=== PATIENT | female | born 1950 | race Caucasian/White ===

== ENCOUNTER 2017-01-10 16:13 | Inpatient (IN) ==
[2017-01-10] MEDS ORDERED: METOPROLOL TARTRATE 50 MG TABLET PO STA (18:24)
--- NOTE | 2017-01-10 18:26 | Emergency Department Note ---
Arrival - Arrival Chief Complaint: Non-Specific Stated Complaint: HIGH BP AND DEHYDRATION ED Nursing Triage Note: PT WAS SEEN HERE ON TUESDAY WITH C/O CONFUSION AND DEHYDRATION. PT F/U WITH CARIDAD LOPEZ NP THIS AFTERNOON AND SENT HERE FOR FURTHER EVAL FOR NO IMPROVEMENT. PT IS AAOX3 AT TRIAGE. Mode of Arrival: Wheelchair Limitations: No Limitations Source: Patient, Family Time Seen by Provider: 01/10/17 18:20 - History of Present Illness HPI Narrative: This patient presents with several days of intermittent confusion and a spinning feeling as if she is drifting to the right. This has not been associated with nausea, vomiting, slurred speech, headache, or visual changes. The patient was seen here approximately 1 week ago for similar symptoms and returns on the recommendation of her primary care doctor on follow-up today. Family members that accompanied the patient do state that she has intermittent periods of confusion and staggering for some time. Further complicating this has been a resting tachycardia and labile blood pressure for the last 2 weeks was which her primary care physician has been trying to deal with. She denies any chest pain or shortness of breath in association with the tachycardias nor does she have a history of any thyroid disorder. Currently the patient appears in no acute distress Onset (ago): day(s) (This patient presents several days post onset of symptoms) Allergies/Adverse Reactions: Allergies Allergy/AdvReac Type Severity Reaction Status Date / Time dantrolene [From Dantrium] Allergy Flushing Verified 01/10/17 16:45 loratadine [From Claritin] Allergy Flushing Verified 01/10/17 16:45 albuterol [From Ventolin HFA] AdvReac Shakiness Verified 01/10/17 16:45 Tizanidine [From Zanaflex] AdvReac Palpitation Verified 01/10/17 16:45 s antihistamines Allergy Flushing Uncoded 01/10/17 16:45 Home Medications: Home Medications Medication Instructions Recorded Confirmed Type Amitriptyline HCl 100 mg PO BEDTIME 03/16/15 01/10/17 History Budesonide Neb [Pulmicort Respules] 0.5 mg RESP TX RT BID PRN 03/16/15 01/10/17 History Clorazepate Dipotassium 7.5 mg PO BID 03/16/15 01/10/17 History Gabapentin Cap/Tab [Neurontin 300 mg PO TID 03/16/15 01/10/17 History Cap/Tab] HYDROcodone/ACETAMIN 10-325 [[place] 1 tablet PO BID 03/16/15 01/10/17 History 10-325] HydrOXYzine PAMOATE CAP [Vistaril 25 mg PO QID PRN 03/16/15 01/10/17 History Cap] Metoprolol Tartrate 50 mg PO BID 03/16/15 01/10/17 History Morphine Sulfate [Morphine Sulfate 30 mg PO BID 03/16/15 01/10/17 History ER] Omeprazole [Prilosec] 40 mg PO DAILY 03/16/15 01/10/17 History Trazodone HCl 100 mg PO DAILY 03/16/15 01/10/17 History buPROPion HCl [Bupropion Xl] 300 mg PO DAILY 03/16/15 01/10/17 History Cyanocobalamin Inj [Vitamin B12 1,000 mcg IM FR 09/07/16 01/10/17 History Inj] Fluticasone 110 Mcg Inhaler 110 mcg INH BID 09/07/16 01/10/17 History [Flovent 110 mcg Inhaler] Lactulose 15 ml PO DAILY PRN 09/07/16 01/10/17 History Lidocaine 5% Patch [Lidoderm 5% 1 patch TRANSDERM DAILY PRN 09/07/16 01/10/17 History Patch] Naproxen [Naprosyn Tab] 500 mg PO BID 09/07/16 01/10/17 History Nitroglycerin Sl Tab [Nitrostat] 0.4 mg SL Q5M PRN 09/07/16 01/10/17 History Nystatin Liquid [Mycostatin Oral 4 ml PO QID 09/14/16 01/10/17 History Susp] Chlorzoxazone [Chlorzoxazone] 750 mg PO BID 01/07/17 01/10/17 History Ciprofloxacin Tab [Cipro Tab] 250 mg PO BID #10 tablet 01/07/17 01/10/17 Rx Citalopram Hydrobromide 20 mg PO DAILY 01/07/17 01/10/17 History [Citalopram HBr] Fluticasone 50 Mcg Nasal [place] 1 spray BOTH NARES DAILY 01/07/17 01/10/17 History [Flonase Nasal [place]] Furosemide Tab [Lasix Tab] 20 mg PO DAILY 01/07/17 01/10/17 History Lisinopril 10 mg PO DAILY 01/07/17 01/10/17 History Review of System - Review of System 12 point system: reviewed and no additional remarkable complaints except as stated - Review of System Constitutional: Present: as per HPI Respiratory: Present: as per HPI Cardiovascular: Present: as per HPI Gastrointestinal: Present: as per HPI Neurological: Present: as per HPI Medical,Surgical,& Family Hx - Medical History Cardio: History of: Cardiac Dysrhythmia (TACHYCARDIAC) Psychological: History of: Anxiety Disorders Neurology: History of: Peripheral Neuropathy Rheumatology: History of;: Fibromyalgia Respiratory: History of: Asthma, COPD Genitourinary: History of: Bladder Problem, Kidney Stones Gastrointestinal: History of: GERD Musculoskeletal: History of: Back/Neck Problems, Degenerative Disk Disease, Osteoporosis Hematology: No history of: Blood Transfusion Reaction Reproductive: No history of: Breast Cancer Other: History of: Anesthesia Reactions No history of: Cancer - Surgical History Cardiac Surgeries: Sugical HX of: Cardiac Catheterization Thoracic Surgeries: Patient denies;: Kidney (Renal Surgery), Lithotripsy HEENT Surgeries: Surgical HX of: Eye Surgery, Tonsilectomy & Adenoidectomy Abdominal Surgeries: Surgical HX of: Appendectomy, Cholecystectomy, Colonoscopy , EGD, Hernia Repair (GROIN) Reproductive Surgeries: Surgical HX of;: Breast Surgery (RIGHT TUMOR), Section (X 2), Hysterectomy Orthopedic Surgeries: Surgical HX of;: Spinal Surgery Patient denies;: Orthopedic Surgery, Total Hip Replacement, Total Knee Replacement - Social History Smoking Status: Smoker, status unknown Frequency of Alcohol Use: None Type of Drug Use: None Exam Physical Examination: GENERAL: Well developed, well nourished elderly white female in no acute distress. HEENT: Normocephalic. No trauma. Moist mucous membranes. EOMI. PERRLA. No nystagmus ENT NML NECK: Supple. No adenopathy. CARDIAC: Regular. No murmurs. Heart rate 130 CHEST: Clear to auscultation. No respiratory distress. O2 sat 96% ABDOMEN: Soft. Nontender. Active bowel sounds. EXTREMITIES: No trauma. Normal ROM. No pedal edema. SKIN: No diaphoresis. No rash. NEURO: Alert. Oriented 3. Motor, sensory, vibratory intact. No focal deficits. Vital Signs: Vital Signs Temperature 97.9 F 01/10/17 18:12 Pulse Rate 141 H 01/10/17 18:12 Respiratory Rate 18 01/10/17 18:34 Blood Pressure 153/120 01/10/17 18:12 O2 Sat by Pulse Oximetry 96 01/10/17 16:40 Course - Reevaluation(s) Reevaluation #1: Discussed with patient the need for further evaluation given her episodes of confusion and persistent tachycardia of an unexplained etiology. - Consultations Consultation #1: Discussed with the hospitalist service will admit for further evaluation treatment. Results - Labs CBC & BMP: 01/10/17 18:30 01/10/17 18:53 Labs: I reviewed the laboratory and noted the infected urine as well as the borderline glucose. - Impressions EKG: Sinus tachycardia at 100. Normal CT interval and QRS duration. Nonspecific ST changes. No evidence of acute injury pattern noted. - Diagnostic Findings Procedure: Chest x-ray: image reviewed by me, report reviewed by me (No acute disease), CT: image reviewed by me, report reviewed by me (Head: No acute disease) Disposition Clinical Impression: TIA, Vertigo, Poorly controlled blood pressure, Chronic tachycardia Case discussed with: patient, patient's family Disposition: Still a Patient Condition: Stable Time of Disposition: 20:29
[2017-01-10] MEDS ORDERED: METOPROLOL TARTRATE 50 MG TABLET ONE (18:38)
[2017-01-10 18:40] LABS: Basophils % 0.3 % (0.0-0.8); Eosinophils # 0.2 10*3/uL (0.0-0.87); Eosinophils % 2.4 % (0.00-10.9); Hematocrit 40.1 VOL% (35.7-47.0); Hemoglobin 13.3 GM/DL (12.0-16.0); Immature Granulocytes % 0.8 %; Immature Granulocytes Absolute 0.05 #; Lymphocytes # 2.4 10*3/uL (1.4-4.0); Lymphocytes % 38.7 % (21.3-54.2); Mean Corpuscular HGB Conc 33.2 GM/DL (32-36); Mean Corpuscular Hemoglobin 28 PG (27-34); Mean Corpuscular Volume 84.4 FL (87-102); Mean Platelet Volume 10.2 FL (9.6-12.0); Monocytes # 0.3 10*3/uL (0.11-0.8); Monocytes % 5.2 % (1.7-12.7); Neutrophils # 3.3 10*3/uL (1.4-7.4); Neutrophils % 52.6 % (38.7-73.9); Platelet Count 164 T/CUMM (130-400); Red Blood Count 4.75 MC/CUMM (3.8-5.5); Red Cell Distribution Width 13.6 % (9.3-17.3); White Blood Count 6.3 T/CUMM (4-12)
--- NOTE | 2017-01-10 18:44 | CT Report ---
CT head/brain wo con Indication: 66-year-old female, mental status changes. CT BRAIN WITHOUT CONTRAST DLP: 942 mGy*cm. One or more of the following dose reduction techniques was used: Automated exposure control, adjustment of the mA and/or kV according the patient size, or use of iterative reconstruction techniques. Comparison: 09/06/2012. Date of admission: 01/10/2017. Technique: Axial noncontrast CT images of the brain were obtained. Findings: No acute hemorrhage, mass or mass effect. Ventricles and sulci are appropriate for age. Patrick-white junction is maintained throughout. No focal bone lesions are shown. Visualized paranasal sinuses are clear. Impression: Negative CT brain without contrast. PROCEDURE INTERPRETED AT [facility] DEPARTMENT OF RADIOLOGY Final Report Signed by: Leoncio Wolff M.D.
--- NOTE | 2017-01-10 18:56 | XRay Report ---
XR chest 1V portable Indication: Altered mental status. Chest one view: Comparison 3 days ago shows stable ACDF, normal heart size and tortuous thoracic aorta, and chronic scarring of the right perihilar lung and both lung bases. No new infiltrates are shown. Impression: No acute cardiopulmonary disease. Chronic findings as described. PROCEDURE INTERPRETED AT [facility] DEPARTMENT OF RADIOLOGY Final Report Signed by: Leoncio Wolff M.D.
--- NOTE | 2017-01-10 19:00 | EKG Report ---
Stationary ECG Study 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
[2017-01-10 19:41] LABS: Apearance,Urine Slightly Hazy (Clear); Bilirubin,Urine Negative (Negative); Blood, Urine Negative (Negative); Glucose,Urine (UA) Negative (Negative); Hyaline Casts,Urine 4 /LPF (0-3); Ketones,Urine 20 mg/dL (Negative); Mucus,Urine Occasional /LPF (Occasional); Nitrite,Urine Positive (Negative); Protein,Urine Negative; Squamous Epithelial Cell,Urine Occasional /HPF (0-10); Urine Color Yellow (Yellow); Urine Specific Gravity 1.009 (1.001-1.035); Urine Urobilinogen < 2.0 EU/DL (0.2-1.0); WBC,Urine 30 /HPF (0-6)
[2017-01-10 19:57] LABS: Albumin 2.9 G/DL (3.4-5.0); Bilirubin,Total 0.4 MG/DL (0.2-1.0); CKMB % 3.5 %; Calcium 7.8 MG/DL (8.5-10.1); Free T4 (Free Thyroxine) 1.42 NG/DL (0.76-1.46); Osmolality,Calculated 270.7 MOS/KG (273-304); Potassium 3.8 MMOL/L (3.5-5.1); Thyroid Stimulating Hormone 2.42 uIU/ml (0.358-3.74); Total Protein 6.1 G/DL (6.4-8.3); Troponin I Only 0.015 NG/ML (0.00-0.045)
[2017-01-10] MEDS ORDERED: LEVOFLOXACIN INJ 750 MG in PREMIX 1 EACH IV STA (20:19)
[2017-01-10] MEDS ORDERED: LEVOFLOXACIN INJ 150 ML IV ONE (21:26)
[2017-01-10] MEDS ORDERED: LABETALOL 20 MG/4 ML SYRINGE IV PRN (21:36)
[2017-01-10] MEDS ORDERED: ACETAMINOPHEN 325 MG TABLET PO PRN (21:36)
[2017-01-10] MEDS ORDERED: HydrOXYzine PAMOATE 25 MG CAPSULE PO PRN (21:41)
[2017-01-10] MEDS ORDERED: LACTULOSE 20 GM/30 ML UDCUP PO PRN (21:41)
[2017-01-10] MEDS ORDERED: BUDESONIDE 0.5 MG/2 ML NEB RESP TX PRN (21:41)
[2017-01-10] MEDS ORDERED: CHLORZOXAZONE 500 MG PO SCH (21:45)
--- NOTE | 2017-01-10 21:49 | Hospitalist History & Physical ---
Assessment and Plan (1) Urinary tract infection Status: Acute Current Visit: Yes (2) Dizziness Status: Acute Current Visit: Yes (3) Tachycardia Status: Acute Current Visit: Yes (4) Orthostatic hypotension Status: Acute Current Visit: Yes (5) Forgetfulness Status: Acute Current Visit: Yes (6) Confusion Status: Acute Assessment and plan: We will admit this patient to our service. She will be placed on a monitored bed. Check orthostatic vital signs. Continue home meds as appropriate. Get MRI of her brain and vascular studies. Get a PT evaluation. IV antibiotics for her urinary tract infection follow-up on culture results. Consult Dr. Sandoval for this confusion. Patient relates a history of losing 5 days and cannot remember what happened. This could be associated with a polypharmacy she is on a lot of medications. Reevaluate patient in the morning just plans appropriate Current Visit: Yes History of Present Illness Chief complaint: Dizziness orthostatic hypotension forgetfulness confusion History of present illness: Ms. Ybarra is a 66 year old female with medical problems including hypertension, fibromyalgia, asthma, COPD, osteoporosis, and tachycardia who comes to our ER today. Patient gives a long history about what is going on with her in the past. She said probably about 6 months ago it was noted that her heart rate was really accelerated. She was started on metoprolol at that time. Her blood pressure continued to climb and she was started on another blood pressure medicine. She started having memory problems soon thereafter. It was more about where she places things. She is noticed that she has had some lower extremity weakness. And she has been having frequent falls were her right side seems weaker than her left. Patient was in the ER 2 days ago for dizziness and falling. She had a follow-up appointment with her primary care doctor Dr. Gonzales. The MDs office was concerned about her forgetfulness and her variation in her heart rate in her confusion and recommended that she be sent up to our hospital for further evaluation I was consulted to admit her to the emergency room Home Medications Medication Instructions Recorded Confirmed Type Amitriptyline HCl 100 mg PO BEDTIME 03/16/15 01/10/17 History Budesonide Neb [Pulmicort Respules] 0.5 mg RESP TX RT BID PRN 03/16/15 01/10/17 History Clorazepate Dipotassium 7.5 mg PO BID 03/16/15 01/10/17 History Gabapentin Cap/Tab [Neurontin 300 mg PO TID 03/16/15 01/10/17 History Cap/Tab] HYDROcodone/ACETAMIN 10-325 [[place] 1 tablet PO BID 03/16/15 01/10/17 History 10-325] HydrOXYzine PAMOATE CAP [Vistaril 25 mg PO QID PRN 03/16/15 01/10/17 History Cap] Metoprolol Tartrate 50 mg PO BID 03/16/15 01/10/17 History Morphine Sulfate [Morphine Sulfate 30 mg PO BID 03/16/15 01/10/17 History ER] Omeprazole [Prilosec] 40 mg PO DAILY 03/16/15 01/10/17 History Trazodone HCl 100 mg PO DAILY 03/16/15 01/10/17 History buPROPion HCl [Bupropion Xl] 300 mg PO DAILY 03/16/15 01/10/17 History Cyanocobalamin Inj [Vitamin B12 1,000 mcg IM FR 09/07/16 01/10/17 History Inj] Fluticasone 110 Mcg Inhaler 110 mcg INH BID 09/07/16 01/10/17 History [Flovent 110 mcg Inhaler] Lactulose 15 ml PO DAILY PRN 09/07/16 01/10/17 History Lidocaine 5% Patch [Lidoderm 5% 1 patch TRANSDERM DAILY PRN 09/07/16 01/10/17 History Patch] Naproxen [Naprosyn Tab] 500 mg PO BID 09/07/16 01/10/17 History Nitroglycerin Sl Tab [Nitrostat] 0.4 mg SL Q5M PRN 09/07/16 01/10/17 History Nystatin Liquid [Mycostatin Oral 4 ml PO QID 09/14/16 01/10/17 History Susp] Chlorzoxazone [Chlorzoxazone] 750 mg PO BID 01/07/17 01/10/17 History Ciprofloxacin Tab [Cipro Tab] 250 mg PO BID #10 tablet 01/07/17 01/10/17 Rx Citalopram Hydrobromide 20 mg PO DAILY 01/07/17 01/10/17 History [Citalopram HBr] Fluticasone 50 Mcg Nasal [place] 1 spray BOTH NARES DAILY 01/07/17 01/10/17 History [Flonase Nasal [place]] Furosemide Tab [Lasix Tab] 20 mg PO DAILY 01/07/17 01/10/17 History Lisinopril 10 mg PO DAILY 01/07/17 01/10/17 History Allergies Allergy/AdvReac Type Severity Reaction Status Date / Time dantrolene [From Dantrium] Allergy Flushing Verified 01/10/17 16:45 loratadine [From Claritin] Allergy Flushing Verified 01/10/17 16:45 albuterol [From Ventolin HFA] AdvReac Shakiness Verified 01/10/17 16:45 Tizanidine [From Zanaflex] AdvReac Palpitation Verified 01/10/17 16:45 s antihistamines Allergy Flushing Uncoded 01/10/17 16:45 Medical,Surgical,& Family Hx - Medical History Cardio: History of: Cardiac Dysrhythmia (TACHYCARDIAC) Psychological: History of: Anxiety Disorders Neurology: History of: Peripheral Neuropathy Rheumatology: History of;: Fibromyalgia Respiratory: History of: Asthma, COPD Genitourinary: History of: Bladder Problem, Kidney Stones Gastrointestinal: History of: GERD Musculoskeletal: History of: Back/Neck Problems, Degenerative Disk Disease, Osteoporosis Hematology: No history of: Blood Transfusion Reaction Reproductive: No history of: Breast Cancer Other: History of: Anesthesia Reactions No history of: Cancer - Surgical History Cardiac Surgeries: Sugical HX of: Cardiac Catheterization Thoracic Surgeries: Patient denies;: Kidney (Renal Surgery), Lithotripsy HEENT Surgeries: Surgical HX of: Eye Surgery, Tonsilectomy & Adenoidectomy Abdominal Surgeries: Surgical HX of: Appendectomy, Cholecystectomy, Colonoscopy , EGD, Hernia Repair (GROIN) Reproductive Surgeries: Surgical HX of;: Breast Surgery (RIGHT TUMOR), Section (X 2), Hysterectomy Orthopedic Surgeries: Surgical HX of;: Spinal Surgery Patient denies;: Orthopedic Surgery, Total Hip Replacement, Total Knee Replacement - Social History Smoking Status: Smoker, status unknown Frequency of Alcohol Use: None Type of Drug Use: None 12 point system: reviewed and no additional remarkable complaints except as stated Exam - Constitutional General appearance: normal weight - Head Head exam: Present: normal inspection - Eye Eye exam: Present: EOMI Pupils: Present: BASSAM - ENT ENT exam: Present: normal exam - Neck Neck exam: Present: normal inspection - Respiratory Respiratory exam: Present: clear to auscultation bilaterally - Cardiovascular Cardiovascular exam: Present: regular rate and rhythm - GI/Abdominal GI/Abdominal exam: Present: normal bowel sounds - Extremities Exam Extremities exam: Present: normal inspection - Back Exam Back exam: Present: normal inspection - Neurological Exam Neurological exam: Present: alert - Psychiatric Psychiatric exam: Present: normal affect - Skin Skin exam: Present: normal color Results - Labs CBC & BMP: 01/10/17 18:30 01/10/17 18:53
[2017-01-10 23:46] LABS: Barbiturates Screen,Urine Negative (Negative); Benzodiazepines Screen,Urine Positive (Negative); Cannabinoid Screen,Urine Negative (Negative); Opiate Screen,Urine Positive (Negative); Phencyclidine Screen,Urine Negative (Negative)
[2017-01-10] MEDS: MORPHINE ER 30 MG TABLET PO SCH (23:47)
[2017-01-10] MEDS: traZODone 50 MG TABLET PO SCH (23:47)
[2017-01-10] MEDS: CLORAZEPATE 7.5 MG TABLET PO SCH (23:47)
[2017-01-10] MEDS: AMITRIPTYLINE 50 MG TABLET PO SCH (23:48)
[2017-01-10] MEDS: PANTOPRAZOLE 40 MG TABLET PO SCH (23:48)
[2017-01-10] MEDS: ENOXAPARIN 40 MG/0.4 ML SYRINGE SUBCUT SCH (23:50)
[2017-01-11] MEDS: FLUTICASONE 110 MCG/PUFF INHALER 12 GM INH SCH ×3 (00:01→21:48)
[2017-01-11 06:30] LABS: Basophils % 0.6 % (0.0-0.8); Eosinophils # 0.3 10*3/uL (0.0-0.87); Eosinophils % 5.7 % (0.00-10.9); Hematocrit 33.7 VOL% (35.7-47.0); Hemoglobin 11.4 GM/DL (12.0-16.0); Immature Granulocytes Absolute 0.05 #; Lymphocytes % 39.3 % (21.3-54.2); Mean Corpuscular HGB Conc 33.8 GM/DL (32-36); Mean Corpuscular Hemoglobin 28 PG (27-34); Mean Platelet Volume 10.6 FL (9.6-12.0); Monocytes # 0.4 10*3/uL (0.11-0.8); Neutrophils # 2.4 10*3/uL (1.4-7.4); Neutrophils % 46.4 % (38.7-73.9); Platelet Count 168 T/CUMM (130-400); Red Blood Count 4.06 MC/CUMM (3.8-5.5); Red Cell Distribution Width 13.4 % (9.3-17.3); White Blood Count 5.1 T/CUMM (4-12)
[2017-01-11 06:58] LABS: Calcium 8.2 MG/DL (8.5-10.1); Potassium 3.9 MMOL/L (3.5-5.1); Risk Ratio 3.06
--- NOTE | 2017-01-11 07:38 | Ultrasound Report ---
Referring physician: Kaylah Felipe Exam: Carotid ultrasound Date: January 11, 2017 Comparison: None Reason: Weakness, dizziness, confusion Technique: Duplex scan of the carotid arteries was performed using B-Mode/grayscale imaging and Doppler spectral analysis and color flow. Ultrasound images were captured and stored. Findings: There is minimal plaque at the carotid bifurcations. The right ICA measures 0.56 cm in diameter, and the left ICA measures 0.56 cm in diameter. The peak systolic velocities are as follows: Right CCA: 62 cm/s Right proximal ICA: 70 cm/s Right distal ICA: 87 cm/s Right ECA: 85 cm/s Left CCA: 58 cm/s Left proximal ICA: 48 cm/s Left distal ICA: 53 cm/s Left ECA: 37 cm/s The peak systolic ICA/CCA velocity ratios are as follows: 1.4 on the right and 0.9 on the left. Antegrade flow is present within both vertebral arteries. Impression: 1. Less than 50% stenosis of both cervical internal carotid arteries. 2. The Society of Radiologists in Ultrasound consensus conference criteria was used. PROCEDURE INTERPRETED AT [facility] DEPARTMENT OF RADIOLOGY Final Report Signed by: Dr. John Coe
[2017-01-11] MEDS ORDERED: FUROSEMIDE 20 MG TABLET PO SCH (09:00)
[2017-01-11] MEDS ORDERED: METOPROLOL TARTRATE 50 MG TABLET PO SCH (09:00)
[2017-01-11] MEDS ORDERED: PANTOPRAZOLE 40 MG TABLET PO SCH (09:00)
[2017-01-11] MEDS: NYSTATIN 500,000 UNIT/5 ML UDCUP PO SCH ×4 (10:13→21:48)
[2017-01-11] MEDS: CITALOPRAM 20 MG TABLET PO SCH (10:13)
[2017-01-11] MEDS: buPROPion XL 150 MG TABLET PO SCH (10:15)
[2017-01-11] MEDS: ASPIRIN 325 MG TABLET PO SCH (10:16)
[2017-01-11] MEDS: NAPROXEN 500 MG TABLET PO SCH ×2 (10:16→21:48)
[2017-01-11] MEDS: MORPHINE ER 30 MG TABLET PO SCH ×2 (10:17→21:47)
[2017-01-11] MEDS: LISINOPRIL 10 MG TABLET PO SCH (10:17)
[2017-01-11] MEDS: GABAPENTIN 300 MG CAPSULE PO SCH ×3 (10:18→21:47)
[2017-01-11] MEDS: PANTOPRAZOLE 40 MG TABLET PO SCH (10:18)
[2017-01-11] MEDS: FLUTICASONE 50 MCG NASAL SPRAY 16 GM BOTTLE BOTH NARES SCH (10:18)
[2017-01-11] MEDS: CLORAZEPATE 7.5 MG TABLET PO SCH ×2 (10:25→21:47)
--- NOTE | 2017-01-11 10:32 | Hospitalist Progress Note ---
Assessment and Plan (1) Confusion Status: Chronic Assessment and plan: The patient has high risk for adverse medication interactions on current regimen , many of which would overlap with her base complaints. Current Visit: Yes Hospitalist: Subjective Interval history: 66 yo female who was referred from her physicians office to ER. She has had three trips to the ER over the last year for subjective fever without positive findings. Her most recent visit on the showed no fever, normal WBC, and current culture results are all negative. She has chronic pain disorder with use of opiates. angiolytics, and multiple antidepressants. She is concerned about widely fluctuating blood pressures and persistent tachycardia (sinus on checks here since February of 2016). She is chronically on metoprolol, lisinopril, and lasix. Her admitting laboratory evaluation was unremarkable. On previous ER visit she demonstrated elevated creatinine kinase levels with stable cTnI levels suggesting metabolic muscle disorder. Exam - Constitutional Vitals: Period Temp Pulse Resp BP Sys/Mike Pulse Ox Last 24 Hr 97.6 F-98.2 F 82-86 18-20 98-148/62-98 93-96 General appearance: normal weight, no acute distress - Respiratory Respiratory exam: Present: clear to auscultation bilaterally. Absent: rales, rhonchi, wheezes - Cardiovascular Cardiovascular exam: Present: regular rate and rhythm. Absent: systolic murmur - GI/Abdominal GI/Abdominal exam: Present: normal bowel sounds. Absent: distended, tenderness , rebound - Extremities Exam Extremities exam: Absent: edema - Neurological Exam Neurological exam: Present: alert, oriented X3, other (proximal muscle weakness) Results - Labs CBC & BMP: 01/11/17 05:34 01/11/17 05:34 Labs: cTnI not evolving - Diagnostic Findings Procedure: Chest x-ray: report reviewed by me (negative), CT: report reviewed by me (head negative), Ultrasound: report reviewed by me (unremarkable carotid ultrasound)
[2017-01-11 12:25] LABS: CKMB % 3.3 %
--- NOTE | 2017-01-11 14:57 | Event Note ---
Patient gone for MRI
--- NOTE | 2017-01-11 15:35 | Magnetic Resonance Report ---
MRI brain without contrast Indication: Vertigo, confusion Comparison: None available Technique: Axial sagittal and coronal imaging of the brain is performed without contrast. T1, T2, FLAIR and diffusion weighted sequences are performed. Findings: No evidence of restricted diffusion seen. No evidence of intracranial hemorrhage, mass, mass effect or midline shift is seen. Few small foci are faintly seen in the white matter of the cerebral hemispheres. Remaining brain parenchyma has normal signal and differentiation. The ventricles and cisterns are appropriate in caliber. Posterior fossa, mid brain and pituitary gland appear within normal limits. No evidence of cranial or skull base abnormality seen. Impression: Few small foci of white matter T2 signal hyperintensity, likely related to chronic microvascular changes. PROCEDURE INTERPRETED AT [facility] DEPARTMENT OF RADIOLOGY Final Report Signed by: Dr. Prabhjot Bruno
--- NOTE | 2017-01-11 16:17 | ECHO Report ---
Vivien Ybarra Exam Date: 01/11/2017 09:24 Referring Physician: Technologist: Bridgett Thomas Age: 66 Ht (in): 60 Wt (lb): 176 Gender: F Exam Location: [facility] Echo Indications: Hypotension, weakness, UTI, Dizziness, tachycardia BP: 98 / 62 HR: 83 Rhythm: Sinus Technical Quality: Technically difficult study IMPRESSIONS Technically difficult study. EF 55 %. Grade I/IV diastolic dysfunction (abnormal relaxation filling pattern), normal to mildly elevated filling pressures. Normal right ventricular size. The right atrium is mildly enlarged. The left atrium is mildly enlarged. Mildly thickened mitral valve. Trace mitral valve regurgitation. Aortic valve sclerosis. No aortic valve regurgitation. Mild tricuspid valve regurgitation. PAP 40 mmHG. Pulmonic valve not well visualized. No pericardial effusion. Normal size aortic root and proximal ascending aorta. MEASUREMENTS (Male / Female) Normal Values 2D ECHO LV Diastolic Diameter PLAX 4.3 cm 4.2 - 5.9 / 3.9 - 5.3 cm LV Systolic Diameter PLAX 2.9 cm LV Fractional Shortening PLAX 32.4 % IVS Diastolic Thickness 1.6 cm 0.6 - 1.0 / 0.6 - 0.9 cm LVPW Diastolic Thickness 1.4 cm 0.6 - 1.0 / 0.6 - 0.9 cm RV Internal Dim ED PLAX 2.4 cm Aortic Root Diameter 1.8 cm LA Systolic Diameter LX 2.3 cm 3.0 - 4.0 / 2.7 - 3.8 cm DOPPLER TR Peak Velocity 201.0 cm/s TR Peak Gradient 16.2 mmHg FINDINGS Left Ventricle EF 55 %. Grade I/IV diastolic dysfunction (abnormal relaxation filling pattern), normal to mildly elevated filling pressures. Right Ventricle Normal right ventricular size. Right Atrium The right atrium is mildly enlarged. Left Atrium The left atrium is mildly enlarged. Mitral Valve Mildly thickened mitral valve. Trace mitral valve regurgitation. Aortic Valve Aortic valve sclerosis. No aortic valve regurgitation. Tricuspid Valve Morphologically normal tricuspid valve. Mild tricuspid valve regurgitation. PAP 40 mmHG. Pulmonic Valve Pulmonic valve not well visualized. Pericardium No pericardial effusion. Aorta Normal size aortic root and proximal ascending aorta. Anthony Marcano (Electronically Signed) Final Date: 11 January 2017 16:17
[2017-01-11] MEDS ORDERED: LEVOFLOXACIN INJ 500 MG in PREMIX 1 EACH IV SCH (21:00)
[2017-01-11] MEDS: traZODone 50 MG TABLET PO SCH (21:47)
[2017-01-11] MEDS: AMITRIPTYLINE 50 MG TABLET PO SCH (21:48)
[2017-01-11] MEDS: ENOXAPARIN 40 MG/0.4 ML SYRINGE SUBCUT SCH (21:49)
--- NOTE | 2017-01-12 06:51 | Hospitalist Progress Note ---
Assessment and Plan (1) Confusion Status: Chronic Assessment and plan: The patient has high risk for adverse medication interactions on current regimen , many of which would overlap with her base complaints. Current Visit: Yes (2) Muscle disease or syndrome Status: Chronic Assessment and plan: Prolonged elevation of total CK and MB fractions. Current Visit: Yes Hospitalist: Subjective Interval history: 66 yo female admitted from physician's office after ER visit. Several evaluations for subjective fevers without positive findings. Incidental note of elevated total CK and substantial MB contribution. She demonstrated stable findings on yesterday's check suggesting underlying muscle disorder (? polymyalgia, inflammatory myositis, toxic effects of one of her many psychiatric agents). Her MRI has returned without positive findings and her system blood pressure is adequate off of antihypertensives. Neurology consult is pending. Exam - Constitutional Vitals: Period Temp Pulse Resp BP Sys/Mike Pulse Ox Last 24 Hr 96.1 F-97.8 F 85-117 18-20 81-119/52-78 92-96 General appearance: normal weight, no acute distress - Respiratory Respiratory exam: Present: clear to auscultation bilaterally - Cardiovascular Cardiovascular exam: Present: regular rate and rhythm - GI/Abdominal GI/Abdominal exam: Present: normal bowel sounds. Absent: tenderness - Extremities Exam Extremities exam: Absent: edema - Neurological Exam Neurological exam: Present: alert, oriented X3 Results - Labs CBC & BMP: 01/11/17 05:34 01/11/17 05:34 Labs: CK 466/16 and 402/13 - Diagnostic Findings Procedure: MRI: report reviewed by me (small vessel changes)
[2017-01-12] MEDS: LISINOPRIL 10 MG TABLET PO SCH (09:00)
[2017-01-12] MEDS: PANTOPRAZOLE 40 MG TABLET PO SCH (09:00)
[2017-01-12] MEDS: FLUTICASONE 110 MCG/PUFF INHALER 12 GM INH SCH ×2 (10:45→22:29)
[2017-01-12] MEDS: buPROPion XL 150 MG TABLET PO SCH (10:45)
[2017-01-12] MEDS: NAPROXEN 500 MG TABLET PO SCH ×2 (10:45→22:28)
[2017-01-12] MEDS: CLORAZEPATE 7.5 MG TABLET PO SCH ×2 (10:45→22:31)
[2017-01-12] MEDS: CITALOPRAM 20 MG TABLET PO SCH (10:46)
[2017-01-12] MEDS: FLUTICASONE 50 MCG NASAL SPRAY 16 GM BOTTLE BOTH NARES SCH (10:46)
[2017-01-12] MEDS: ASPIRIN 325 MG TABLET PO SCH (10:46)
[2017-01-12] MEDS: MORPHINE ER 30 MG TABLET PO SCH ×2 (10:46→22:28)
[2017-01-12] MEDS: GABAPENTIN 300 MG CAPSULE PO SCH ×3 (10:46→22:30)
[2017-01-12] MEDS: NYSTATIN 500,000 UNIT/5 ML UDCUP PO SCH ×4 (10:47→22:30)
--- NOTE | 2017-01-12 16:17 | Neurology Consult Note ---
History of Present Illness History of present illness: Ms. Ybarra is a 66 year old female with medical problems including hypertension, fibromyalgia, asthma, COPD, osteoporosis, and tachycardia who is admitted to the hospital with generalized weakness. Patient reported some memory difficulties as well. She reported that last week for 3 days she has some high-grade fever and has no recollection of those 3 or 4 days. Patient gives a long history about what is going on with her in the past. She said probably about 6 months ago it was noted that her heart rate was really accelerated. She was started on metoprolol at that time. Her blood pressure continued to climb and she was started on another blood pressure medicine. She started having memory problems soon thereafter. It was more about where she places things. She is noticed that she has had some lower extremity weakness. And she has been having frequent falls were her right side seems weaker than her left. Patient was in the ER 2 days ago for dizziness and falling. MRI of the brain reveals no acute abnormalities Home Medications Medication Instructions Recorded Confirmed Type Amitriptyline HCl 100 mg PO BEDTIME 03/16/15 01/10/17 History Budesonide Neb [Pulmicort Respules] 0.5 mg RESP TX RT BID PRN 03/16/15 01/10/17 History Clorazepate Dipotassium 7.5 mg PO BID 03/16/15 01/10/17 History Gabapentin Cap/Tab [Neurontin 300 mg PO TID 03/16/15 01/10/17 History Cap/Tab] HYDROcodone/ACETAMIN 10-325 [[place] 1 tablet PO BID PRN 03/16/15 01/10/17 History 10-325] HydrOXYzine PAMOATE CAP [Vistaril 25 mg PO QID PRN 03/16/15 01/10/17 History Cap] Metoprolol Tartrate 50 mg PO BID 03/16/15 01/10/17 History Morphine Sulfate [Morphine Sulfate 30 mg PO BID 03/16/15 01/10/17 History ER] Omeprazole [Prilosec] 40 mg PO DAILY 03/16/15 01/10/17 History Trazodone HCl 100 mg PO DAILY 03/16/15 01/10/17 History buPROPion HCl [Bupropion Xl] 300 mg PO DAILY 03/16/15 01/10/17 History Cyanocobalamin Inj [Vitamin B12 1,000 mcg IM FR 09/07/16 01/10/17 History Inj] Fluticasone 110 Mcg Inhaler 110 mcg INH BID 09/07/16 01/10/17 History [Flovent 110 mcg Inhaler] Lactulose 15 ml PO DAILY PRN 09/07/16 01/10/17 History Lidocaine 5% Patch [Lidoderm 5% 1 patch TRANSDERM DAILY PRN 09/07/16 01/10/17 History Patch] Naproxen [Naprosyn Tab] 500 mg PO BID 09/07/16 01/10/17 History Nitroglycerin Sl Tab [Nitrostat] 0.4 mg SL Q5M PRN 09/07/16 01/10/17 History Nystatin Liquid [Mycostatin Oral 4 ml PO QID 09/14/16 01/10/17 History Susp] Chlorzoxazone [Chlorzoxazone] 500 mg PO BID 01/07/17 01/11/17 History Ciprofloxacin Tab [Cipro Tab] 250 mg PO BID #10 tablet 01/07/17 01/10/17 Rx Citalopram Hydrobromide 20 mg PO DAILY 01/07/17 01/10/17 History [Citalopram HBr] Fluticasone 50 Mcg Nasal [place] 1 spray BOTH NARES DAILY 01/07/17 01/10/17 History [Flonase Nasal [place]] Furosemide Tab [Lasix Tab] 20 mg PO DAILY 01/07/17 01/10/17 History Lisinopril 10 mg PO DAILY 01/07/17 01/10/17 History Promethazine Inj [Phenergan Inj] 25 mg IM Q4H 01/11/17 01/11/17 History Allergies Allergy/AdvReac Type Severity Reaction Status Date / Time albuterol [From Ventolin HFA] AdvReac Shakiness Verified 01/10/17 16:45 dantrolene [From Dantrium] AdvReac Flushing Verified 01/11/17 07:32 loratadine [From Claritin] AdvReac Flushing Verified 01/11/17 07:32 Tizanidine [From Zanaflex] AdvReac Palpitation Verified 01/10/17 16:45 s antihistamines AdvReac Flushing Uncoded 01/11/17 07:32 12 point system: reviewed and no additional remarkable complaints except as stated Medical,Surgical,& Family Hx - Medical History Cardio: History of: Cardiac Dysrhythmia (TACHYCARDIAC) Psychological: History of: Anxiety Disorders Neurology: History of: Peripheral Neuropathy Rheumatology: History of;: Fibromyalgia Respiratory: History of: Asthma, COPD Genitourinary: History of: Bladder Problem, Kidney Stones Gastrointestinal: History of: GERD Musculoskeletal: History of: Back/Neck Problems, Degenerative Disk Disease, Osteoporosis Hematology: No history of: Blood Transfusion Reaction Reproductive: No history of: Breast Cancer Other: History of: Anesthesia Reactions No history of: Cancer - Surgical History Cardiac Surgeries: Sugical HX of: Cardiac Catheterization Thoracic Surgeries: Patient denies;: Kidney (Renal Surgery), Lithotripsy HEENT Surgeries: Surgical HX of: Eye Surgery, Tonsilectomy & Adenoidectomy Abdominal Surgeries: Surgical HX of: Appendectomy, Cholecystectomy, Colonoscopy , EGD, Hernia Repair (GROIN) Reproductive Surgeries: Surgical HX of;: Breast Surgery (RIGHT TUMOR), Section (X 2), Hysterectomy Orthopedic Surgeries: Surgical HX of;: Spinal Surgery Patient denies;: Orthopedic Surgery, Total Hip Replacement, Total Knee Replacement - Social History Smoking Status: Smoker, status unknown Frequency of Alcohol Use: None Type of Drug Use: None Exam - Constitutional Vitals: Period Temp Pulse Resp BP Sys/Mike Pulse Ox Last 24 Hr 97.2 F-97.8 F 91-99 18-20 64-145/40-89 93-96 Exam: GENERAL: Patient is in no acute distress. NECK: Neck is supple. There is no JVD. No carotid bruits present. No thyroid masses. CVS: First and second heart sounds are normal. There is no S3 present. Regular rate and rhythm. RESPIRATORY: Lungs are clear to auscultation without any rales or rhonchi. ABDOMEN: Soft and non-tender. Bowel sounds are present. There is no hepatosplenomegaly. EXT: There is no palpable edema. Peripheral pulses are present. Skin: No rashes Central Nervous system: General: Alert, awake and Oriented x 3 Speech: Fluent Comprehension: Intact and normal Facial expressions: Normal Cranial Nerves: CN1/Olfactory: Normal CN II/ Optic: Normal, Visual Schulz unreliable CN III, and : BASSAM & EOMI CN V: Normal & intact CN VII: face is symmetric CNVIII: Normal CN XI/X/XI/XII: Intact and Normal Motor: Bulk and Tone is normal. Strength in the right 4/5 Strength in the left 4/5 Sensory: Grossly intact for all the modalities of PP, LT and temp sense Reflexes: 1+ and symmetrical Cerebellar function: Normal finger to nose and heel to francisco testing. Toes: Equivocal Gait: Not tested Results - Labs CBC & BMP: 01/11/17 05:34 01/11/17 05:34 Assessment and Plan (1) Debility Status: Acute Assessment and plan: This is likely due to febrile illness which in turned could be due to UTI No evidence of acute [employer] pathology Current Visit: Yes (2) Forgetfulness Status: Acute Assessment and plan: No intervention needed at this time. I will be more than happy to follow-up as an out patient sign off. Call PRN Current Visit: Yes
[2017-01-12] MEDS: ONDANSETRON 4 MG/2 ML VIAL IV PRN (19:15)
[2017-01-12] MEDS: traZODone 50 MG TABLET PO SCH (22:28)
[2017-01-12] MEDS: AMITRIPTYLINE 50 MG TABLET PO SCH (22:29)
[2017-01-12] MEDS: ENOXAPARIN 40 MG/0.4 ML SYRINGE SUBCUT SCH (22:30)
--- NOTE | 2017-01-13 06:58 | Discharge Summary ---
Hospital Course - Hospital Course Hospital Course: Ms. Ybarra is a 66-year-old female who was admitted from her physician's office following an emergency room visit on 07 January. She has had several emergency room visits for subjective fever with no positive findings. She has been treated several times for urinary tract infections of unknown with of unknown organisms through her physician's office. She had complained on this occasion of confusion and again fever. On reviewing previous records it was noted she had a consistent elevation of her CPK and her MB fraction. She did demonstrate mild proximal muscle weakness diffusely. And on repeat the CPK and CK-MB were still elevated. Sedimentation rate was mildly elevated and C- reactive protein was 1.35. A review of her medicine list indicated numerous psychiatric medications potentially contributing to an underlying muscle disorder. She had complained of a increased heart rate again likely secondary to medication effect. For this she has been placed on beta blockers with widely fluctuating blood pressures subsequent to that time. During the hospital stay the patient was afebrile white count was normal. She was seen in consultation by neurology who recommended treatment of the positive urine culture for staph lugendious with outpatient office follow-up with neurology in 1 month. The patient has been advised to discontinue her antihypertensive medications as blood pressure in the hospital stay had been normal. In addition we have asked her to follow-up with her primary provider with consideration of gradual reduction in her psychiatric medications. Diagnosis - Discharge Diagnosis (1) Confusion Status: Chronic (2) Muscle disease or syndrome Status: Chronic Discharge Plan - Discharge Data Disposition: Disch To Home/Self Care Condition at Discharge: Stable Discharge Diet: advance to your usual diet Activity: resume usual activities as tolerated - Discharge Medications Continue Budesonide Neb [Pulmicort Respules] 0.5 mg RESP TX RT BID PRN PRN Reason: Shortness Of Breath/Wheezing HydrOXYzine PAMOATE CAP [Vistaril Cap] 25 mg PO QID PRN PRN Reason: Anxiety buPROPion HCl [Bupropion Xl] 300 mg PO DAILY HYDROcodone/ACETAMIN 10-325 [[place] 10-325] 1 tablet PO BID PRN PRN Reason: Pain Clorazepate Dipotassium 7.5 mg PO BID Trazodone HCl 100 mg PO DAILY Amitriptyline HCl 100 mg PO BEDTIME Morphine Sulfate [Morphine ER Cap] 30 mg PO BID Omeprazole [Prilosec] 40 mg PO DAILY Gabapentin Cap/Tab [Neurontin Cap/Tab] 300 mg PO TID Cyanocobalamin Inj [Vitamin B12 Inj] 1,000 mcg IM FR Nitroglycerin Sl Tab [Nitrostat] 0.4 mg SL Q5M PRN PRN Reason: Chest Pain Naproxen [Naprosyn Tab] 500 mg PO BID Lidocaine 5% Patch [Lidoderm 5% Patch] 1 patch TRANSDERM DAILY PRN PRN Reason: Pain Lactulose 15 ml PO DAILY PRN PRN Reason: Constipation Fluticasone 110 Mcg Inhaler [Flovent 110 mcg Inhaler] 110 mcg INH BID Citalopram Hydrobromide [Citalopram HBr] 20 mg PO DAILY Chlorzoxazone 500 mg PO BID Fluticasone 50 Mcg Nasal [place] [Flonase Nasal [place]] 1 spray BOTH NARES DAILY Nystatin Liquid [Mycostatin Oral Susp] 4 ml PO QID Promethazine Inj [Phenergan Inj] 25 mg IM Q4H Discontinued Metoprolol Tartrate 50 mg PO BID Furosemide Tab [Lasix Tab] 20 mg PO DAILY Lisinopril 10 mg PO DAILY Ciprofloxacin Tab [Cipro Tab] 250 mg PO BID #10 tablet - Follow Up or Referral Follow Up: Marlon Sandoval MD [Physician] - - Forms/Instructions Exam - Constitutional Vitals: Period Temp Pulse Resp BP Sys/Mike Pulse Ox Last 24 Hr 96.4 F-97.7 F 92-99 16-22 64-151/40-89 92-96 Discharge Results Procedures and tests throughout hospitalization: Pending Orders 01/12/17 10:33 Myoglobin, Serum Routine Labs on day of discharge: Labs from last 24 hours 01/12/17 01/12/17 01/12/17 10:33 10:31 08:03 ESR [place] 40 H POC Glucose 102 C-Reactive Protein 1.35 H DS: Provider Date of admission: 01/10/17 20:30 Primary care physician: . No PCP Attending physician on admission: Kaylah Felipe MD Consults: 01/10/17 21:39 Consult to Physician [CONS] Routine Comment: intermittent weakness and forgetfulness Consulting Provider: Marlon Sandoval Consult to Specialist Group: Neurology Person Notified: ABIMAEL Date Notified: 01/11/17 Time Notified: 09:04 01/10/17 21:41 Consult to Physical Therapy [CONS] Routine Reason for Physical Therapy: Evaluate and Treat 01/10/17 22:27 Consult to Pharmacy [CONS] Routine Reason for Pharmacy Consult: Adjust Meds Renal Funct 01/10/17 23:31 Consult to Dietitian [CONS] Routine Reason for Dietitian: Dietary Consult Discharging clinician: Andreas Cowan MD Expected date of discharge: 01/13/17
[2017-01-13] MEDS: PANTOPRAZOLE 40 MG TABLET PO SCH (09:00)
[2017-01-13] MEDS: LISINOPRIL 10 MG TABLET PO SCH (09:00)
[2017-01-13] MEDS: buPROPion XL 150 MG TABLET PO SCH (09:57)
[2017-01-13] MEDS: CITALOPRAM 20 MG TABLET PO SCH (09:57)
[2017-01-13] MEDS: GABAPENTIN 300 MG CAPSULE PO SCH (09:57)
[2017-01-13] MEDS: NAPROXEN 500 MG TABLET PO SCH (09:57)
[2017-01-13] MEDS: MORPHINE ER 30 MG TABLET PO SCH (09:58)
[2017-01-13] MEDS: CLORAZEPATE 7.5 MG TABLET PO SCH (09:58)
[2017-01-13] MEDS: NYSTATIN 500,000 UNIT/5 ML UDCUP PO SCH ×2 (09:58→13:50)
[2017-01-13] MEDS: ASPIRIN 325 MG TABLET PO SCH (09:58)
[2017-01-13] MEDS: FLUTICASONE 50 MCG NASAL SPRAY 16 GM BOTTLE BOTH NARES SCH (09:59)
[2017-01-13] MEDS: FLUTICASONE 110 MCG/PUFF INHALER 12 GM INH SCH (09:59)
[2017-01-13] MEDS: ONDANSETRON 4 MG/2 ML VIAL IV PRN (10:02)
[2017-01-13 14:50] VITALS: BP 100/70
== END 2017-01-13 13:50 | disposition home or self-care (01) | DRG 558 ==
LOC: N.ED 16:13 → N.EDINP 20:30 → SUATTDRO 20:30 → N.2E 21:52
PROVIDERS: ADMIT Internal Medicine; ATTEND Internal Medicine Cardiovascular Disease

== ENCOUNTER 2017-02-22 15:06 | Inpatient (IN) ==
--- NOTE | 2017-02-22 16:33 | XRay Report ---
XR chest 2V Indication: Cough, fever Comparison: Chest x-ray dated January 10, 2017 Technique: Frontal and lateral views of the chest. Findings: The cardiomediastinal silhouette is stable in configuration. Heart remains mildly prominent. Interval development of masslike opacification within the right suprahilar lung which measures up to 5 cm. This most likely reflects pneumonia given clinical history and significant change from prior exam. Follow-up imaging is recommended to document resolution and exclude underlying neoplasm. There is right mid and bilateral lower lung linear atelectasis/scarring. Visualized osseous and surrounding soft tissue structures appear grossly unchanged. IMPRESSION: As above. PROCEDURE INTERPRETED AT [facility] DEPARTMENT OF RADIOLOGY Final Report Signed by: Dr Odin Carvajal
[2017-02-22 16:46] LABS: Basophils % 0.2 % (0.0-0.8); Eosinophils # 0.1 10*3/uL (0.0-0.87); Eosinophils % 0.9 % (0.00-10.9); Hematocrit 31.3 VOL% (35.7-47.0); Hemoglobin 10.5 GM/DL (12.0-16.0); Immature Granulocytes % 0.6 %; Immature Granulocytes Absolute 0.07 #; Lymphocytes # 1.7 10*3/uL (1.4-4.0); Lymphocytes % 14.2 % (21.3-54.2); Mean Corpuscular HGB Conc 33.5 GM/DL (32-36); Mean Corpuscular Hemoglobin 29 PG (27-34); Mean Corpuscular Volume 84.8 FL (87-102); Mean Platelet Volume 10.4 FL (9.6-12.0); Monocytes # 0.9 10*3/uL (0.11-0.8); Monocytes % 7.6 % (1.7-12.7); Neutrophils # 8.9 10*3/uL (1.4-7.4); Neutrophils % 76.5 % (38.7-73.9); Platelet Count 135 T/CUMM (130-400); Red Blood Count 3.69 MC/CUMM (3.8-5.5); Red Cell Distribution Width 13.8 % (9.3-17.3); White Blood Count 11.7 T/CUMM (4-12)
[2017-02-22] MEDS ORDERED: cefTRIAXone 1,000 MG in SODIUM CHLORIDE 0.9% 100 ML IV STA (16:47)
[2017-02-22] MEDS ORDERED: cefTRIAXone 1,000 MG VIAL ONE (16:49)
[2017-02-22 16:58] LABS: Apearance,Urine Slightly Hazy (Clear); Bilirubin,Urine Negative (Negative); Blood, Urine Negative (Negative); Glucose,Urine (UA) Negative (Negative); Ketones,Urine 5 mg/dL (Negative); Nitrite,Urine Negative (Negative); Protein,Urine Negative; RBC,Urine 1 /HPF (0-4); Squamous Epithelial Cell,Urine Occasional /HPF (0-10); Urine Color Yellow (Yellow); Urine Specific Gravity 1.014 (1.001-1.035); WBC,Urine 10 /HPF (0-6)
[2017-02-22 17:03] LABS: Calcium 8.4 MG/DL (8.5-10.1); Magnesium 1.7 MG/DL (1.8-2.4); Osmolality,Calculated 275.8 MOS/KG (273-304); Potassium 4.3 MMOL/L (3.5-5.1)
[2017-02-22 17:08] LABS: Alanine Aminotransferase 33 U/L (13-56); Albumin 2.8 G/DL (3.4-5.0); Alkaline Phosphatase 157 U/L (45-117); Aspartate Amino Transferase 25 U/L (0-37); Bilirubin,Indirect 0.3 MG/DL (0.0-1.0); Blood Urea Nitrogen 22 MG/DL (7-18); Calcium 8.3 MG/DL (8.5-10.1); Glucose 70 MG/DL (74-106); Magnesium 1.7 MG/DL (1.8-2.4); Osmolality,Calculated 270.1 MOS/KG (273-304); Potassium 4.6 MMOL/L (3.5-5.1); Sodium 135 MMOL/L (136-145); Total Protein 5.9 G/DL (6.4-8.3); Troponin I Only < 0.015 NG/ML (0.00-0.045)
[2017-02-22 17:09] LABS: Band Neutrophils 4 % (0-10); Eosinophils 1 % (0-10); Lymphocytes 10 % (20-55); Platelet Estimate Adequate; Segmented Neutrophils 76 % (50-85); Total Cells Counted 100
[2017-02-22] MEDS ORDERED: SODIUM CHLORIDE 0.9% 2,000 ML IV ONE (17:20)
[2017-02-22] MEDS ORDERED: SODIUM CHLORIDE 0.9% 2,250 ML IV ONE (17:31)
[2017-02-22] MEDS ORDERED: AZITHROMYCIN INJ 500 MG in SODIUM CHLORIDE 0.9% 250 ML IV STA (17:31)
[2017-02-22 18:14] LABS: Barbiturates Screen,Urine Negative (Negative); Benzodiazepines Screen,Urine Positive (Negative); Cannabinoid Screen,Urine Negative (Negative); Opiate Screen,Urine Positive (Negative); Phencyclidine Screen,Urine Negative (Negative)
--- NOTE | 2017-02-22 18:19 | Hospitalist History & Physical ---
<[place] aKte - Last Filed: 02/22/17 17:59> Assessment and Plan (1) Pneumonia Status: Acute Assessment and plan: Elevated white count. Right suprahilar masslike opacification. CT with contrast in am Duonebs Rocephin 1g q24h Azithromycin 500mg Current Visit: Yes (2) Septic shock Status: Acute Assessment and plan: Blood cultures and Lactic Acid stat. IV fluids. Current Visit: Yes (3) Urinary tract infection Status: Acute Assessment and plan: Rocephin 1 g. Current Visit: No (4) Tachycardia Status: Acute Current Visit: No History of Present Illness Chief complaint: Fever, weakness, confusion History of present illness: Ms. Ybarra is a 66 year old female with a past medical history significant for hypertension, chronic back pain, fibromyalgia and pulmonary diseases who presents to the ED today with complaints of ongoing fever weakness and confusion 3 days. Patient reports that she has progressively been getting weaker since her last hospital admission in January for similar complaints. She notes that she has sustained several falls, most recently this past Tuesday when she bruised her arms bilaterally. She comes to the ER today complaining of an unrelenting fever. who is at bedside noted that fever today was around 102, and he was unable to get it to break. Patient notes that she has been having episodes of nonproductive cough associated with this fever and progressive weakness. She is followed by Dr. Douglas Gonzales and his nurse practitioner Angie Gonzalez. She reports headache, blurry vision, fever, pleuritic chest pain with inspiration that is concentrated in her right chest wall and radiates to the ipsilateral scapula. She denies nausea, vomiting, change in bowel habits. Preliminary lab work is remarkable for Na 135, BUN 22, Cr 1.10, Glu 70, Mg 1.7. Urinalysis shows moderate leukocytes. CXR showed interval development of masslike opacification within the right suprahilar lung suspicious for pneumonia or underlying neoplasm with atelectasis. After discussion with Dr. Kearns and Dr. Felipe, it has been agreed that the patient will be admitted for further evaluation and treatment. Patient is a full code. Home Medications Medication Instructions Recorded Confirmed Type Budesonide Neb [Pulmicort Respules] 0.5 mg RESP TX RT BID PRN 03/16/15 02/22/17 History Clorazepate Dipotassium 7.5 mg PO BID 03/16/15 02/22/17 History HydrOXYzine PAMOATE CAP [Vistaril 25 mg PO Q4-6H PRN 03/16/15 02/22/17 History Cap] Omeprazole [Prilosec] 40 mg PO DAILY 03/16/15 02/22/17 History buPROPion HCl [Bupropion Xl] 300 mg PO DAILY 03/16/15 02/22/17 History Cyanocobalamin Inj [Vitamin B12 1,000 mcg IM FR 09/07/16 02/22/17 History Inj] Fluticasone 110 Mcg Inhaler 110 mcg INH BID PRN 09/07/16 02/22/17 History [Flovent 110 mcg Inhaler] Nitroglycerin Sl Tab [Nitrostat] 0.4 mg SL Q5M PRN 09/07/16 02/22/17 History Fluticasone 50 Mcg Nasal [place] 1 spray BOTH NARES DAILY 01/07/17 02/22/17 History [Flonase Nasal [place]] Amitriptyline [Elavil] 25 mg PO BEDTIME 02/22/17 02/22/17 History Gabapentin 300 mg PO BID 02/22/17 02/22/17 History Morphine Sulfate [Morphine Sulfate 60 mg PO BID 02/22/17 02/22/17 History ER] Allergies Allergy/AdvReac Type Severity Reaction Status Date / Time albuterol [From Ventolin HFA] AdvReac Shakiness Verified 01/10/17 16:45 dantrolene [From Dantrium] AdvReac Flushing Verified 01/11/17 07:32 loratadine [From Claritin] AdvReac Flushing Verified 01/11/17 07:32 Tizanidine [From Zanaflex] AdvReac Palpitation Verified 01/10/17 16:45 s antihistamines AdvReac [place] Uncoded 01/11/17 07:32 Medical,Surgical,& Family Hx - Medical History Cardio: History of: Cardiac Dysrhythmia (TACHYCARDIAC), Hypertension Psychological: History of: Anxiety Disorders Neurology: History of: Peripheral Neuropathy Rheumatology: History of;: Fibromyalgia Respiratory: History of: Asthma, COPD Genitourinary: History of: Bladder Problem, Kidney Stones Gastrointestinal: History of: GERD Musculoskeletal: History of: Back/Neck Problems, Degenerative Disk Disease, Osteoporosis Hematology: No history of: Blood Transfusion Reaction Reproductive: No history of: Breast Cancer Other: History of: Anesthesia Reactions No history of: Cancer - Surgical History Cardiac Surgeries: Sugical HX of: Cardiac Catheterization Thoracic Surgeries: Patient denies;: Kidney (Renal Surgery), Lithotripsy HEENT Surgeries: Surgical HX of: Eye Surgery, Tonsilectomy & Adenoidectomy Abdominal Surgeries: Surgical HX of: Appendectomy, Cholecystectomy, Colonoscopy , EGD, Hernia Repair (GROIN) Reproductive Surgeries: Surgical HX of;: Breast Surgery (RIGHT TUMOR), Section (X 2), Hysterectomy Orthopedic Surgeries: Surgical HX of;: Spinal Surgery Patient denies;: Orthopedic Surgery, Total Hip Replacement, Total Knee Replacement - Family History Family History: Reports;: Family Hypertension - Social History Smoking Status: Never smoker Have you smoked in the last 12 months: No Frequency of Alcohol Use: None Type of Drug Use: None Marital Status: Lives With:: Spouse Functional capacity: independent ambulation - Constitutional Constitutional: Present: frequent falls, headache(s), weakness - EENT Eyes: Present: blurry vision, diplopia Ears: Absent: decreased hearing, ear pain Nose, mouth and throat: Present: headache(s). Absent: sore throat, vertigo - Cardiovascular Cardiovascular: Present: dyspnea, lightheadedness. Absent: chest pain at rest, radiating jaw, neck or arm pain, palpitations - Respiratory Respiratory: Present: cough, dyspnea, pain on inspiration. Absent: hemoptysis - Gastrointestinal Gastrointestinal: Absent: abdominal pain, change in bowel habits, nausea, vomiting - Genitourinary Genitourinary: Absent: dysuria, flank pain - Musculoskeletal Musculoskeletal: Present: back pain, muscle weakness - Neurological Neurological: Present: confusion, frequent falls, headache(s), numbness, paresthesias. Absent: abnormal gait, abnormal speech, dizziness, syncope - Psychiatric Psychiatric: Absent: anxiety, depression - Endocrine Endocrine: Absent: cold intolerance, heat intolerance - Hematologic/Lymphatic Hematologic/Lymphatic: Absent: easy bleeding, easy bruising Exam - Constitutional Vitals: Period Temp Pulse Resp BP Sys/Mike Pulse Ox Last 24 Hr 99.8 F 102 18 104/62 93 General appearance: no acute distress, over weight - Head Head exam: Present: normocephalic, atraumatic. Absent: abrasion, laceration - Eye Eye exam: Present: EOMI. Absent: conjunctival injection Pupils: Present: BASSAM - ENT ENT exam: Present: normal exam, normal external ear exam - Neck Neck exam: Present: normal inspection. Absent: lymphadenopathy, tenderness, thyromegaly - Respiratory Respiratory exam: Present: clear to auscultation bilaterally, chest wall tenderness. Absent: decreased breath sounds, prolonged expiratory phase, rhonchi, wheezes - Cardiovascular Cardiovascular exam: Present: tachycardia. Absent: carotid bruit, JVD - GI/Abdominal GI/Abdominal exam: Present: normal bowel sounds, soft. Absent: distended, mass , tenderness, rebound - Extremities Exam Extremities exam: Present: normal inspection, normal capillary refill. Absent: edema - Back Exam Back exam: Present: normal inspection. Absent: CVA tenderness (L), CVA tenderness (R) - Neurological Exam Neurological exam: Present: alert, oriented X3, CN II-XII intact - Psychiatric Psychiatric exam: Present: normal affect, normal mood - Skin Skin exam: Present: normal color, warm, abrasion, dry Results - Labs CBC & BMP: 02/22/17 16:24 02/22/17 16:24 Lab Results: I have reviewed the past 24 hour labs - EKG EKG results: interpreted by ERMD - Diagnostic Findings Procedure: Chest x-ray: image reviewed by me, report reviewed by me (pneumonia, R suprahilar masslike opacification) <Kaylah Felipe - Last Filed: 02/22/17 19:10> Assessment and Plan (1) Septic shock Status: Acute Assessment and plan: NS bolus 2250 ml IV then D5 NS at 125 ml/hr Current Visit: Yes (2) Hypotension Status: Acute Assessment and plan: ns bolus, blood cx times 2, rocephin and azithromycin Current Visit: Yes (3) Pneumonia Status: Acute Current Visit: Yes (4) Tachycardia Status: Acute Assessment and plan: dehydration and septic shock Current Visit: No (5) Altered mental status Status: Acute Assessment and plan: due to hypoxia, low bs, check ammonia level, treat sepsis, already having extensive outpatient workup by Dr. Awan from Neurology Current Visit: Yes History of Present Illness History of present illness: Ms. Ybarra is a 66 year old female seen and examined. MS workup is already in process by Dr. Awan from Neurology. We will do UDS, ammonia, abg, lactic acid, fluid bolus, ordered by myself not by Er doctor Exam - Constitutional Vitals: Period Temp Pulse Resp BP Sys/Mike Pulse Ox Last 24 Hr 99.8 F 99-102 18-20 104-129/62-81 93-96 - Eye Pupils: Present: normal accommodation Results - Labs CBC & BMP: 02/22/17 16:24 02/22/17 16:24
[2017-02-22 18:21] LABS: ABG Base Excess -1.8 MMOL/L (-2.5-2.5); ABG HCO3 22.7 MMOL/L (20-26); ABG Oxygen Saturation 88.1 % (95-100); ABG PCO2 34.6 MM HG (35-48); ABG PH 7.415 (7.35-7.45); ABG PO2 55.8 MM HG (80-95); ABG TCO2 19.6 MMOL/L (23-27)
--- NOTE | 2017-02-22 18:24 | Emergency Department Note ---
INirmal Brooke, am scribing for, and in the presence of, Danny Kearns M.D. 16:18. Som Smith Howard T, M.D., personally performed the services described in this documentation, ascribed by Josiane Kinney in my presence, and it is both accurate and complete 822 . Arrival - Arrival Chief Complaint: Weakness Stated Complaint: FELL/WEAK/FEVER ED Nursing Triage Note: c/o weakness and is falling down and running fever. pt has been seen by pcp for this and its gettting worse Mode of Arrival: Stretcher Source: Patient, Family, RN Notes Reviewed Time Seen by Provider: 02/22/17 15:53 - History of Present Illness HPI Narrative: Patient is a 66 year old female who presents to the ED with c/o fever that started on Tuesday. Patient says the fever broke, yesterday, but she woke up with it again this morning. Family member says her temperature was 103 when they left to come to the ED, so Patient took some Naprosyn. During triage, Patient's temperature was 99.8. She denies any cough, trouble breathing, nausea , vomiting, diarrhea, or abdominal pain. She does complain of some dysuria and "dark urine." She says she has a history of recurring urinary tract infections. Patient was admitted to the hospital in January with fever and other similar symptoms. Family says the fever broke, "so nothing further was ever addressed." Patient has PMHx of peripheral neuropathy, anxiety, fibromyagia, asthma, COPD, bladder problems, kidney stones, GERD, back/neck problems, degenerative disk disease, osteoporosis, and menieres disease. Onset (ago): day(s) (3) Allergies/Adverse Reactions: Allergies Allergy/AdvReac Type Severity Reaction Status Date / Time albuterol [From Ventolin HFA] AdvReac Shakiness Verified 01/10/17 16:45 dantrolene [From Dantrium] AdvReac Flushing Verified 01/11/17 07:32 loratadine [From Claritin] AdvReac Flushing Verified 01/11/17 07:32 Tizanidine [From Zanaflex] AdvReac Palpitation Verified 01/10/17 16:45 s antihistamines AdvReac Flushing Uncoded 04/11/17 07:32 Home Medications: Home Medications Medication Instructions Recorded Confirmed Type Budesonide Neb [Pulmicort Respules] 0.5 mg RESP TX RT BID PRN 03/16/15 02/22/17 History Clorazepate Dipotassium 7.5 mg PO BID 03/16/15 02/22/17 History HydrOXYzine PAMOATE CAP [Vistaril 25 mg PO Q4-6H PRN 03/16/15 02/22/17 History Cap] Omeprazole [Prilosec] 40 mg PO DAILY 03/16/15 02/22/17 History buPROPion HCl [Bupropion Xl] 300 mg PO DAILY 03/16/15 02/22/17 History Cyanocobalamin Inj [Vitamin B12 1,000 mcg IM FR 09/07/16 02/22/17 History Inj] Fluticasone 110 Mcg Inhaler 110 mcg INH BID PRN 09/07/16 02/22/17 History [Flovent 110 mcg Inhaler] Nitroglycerin Sl Tab [Nitrostat] 0.4 mg SL Q5M PRN 09/07/16 02/22/17 History Fluticasone 50 Mcg Nasal [place] 1 spray BOTH NARES DAILY 01/07/17 02/22/17 History [Flonase Nasal [place]] Amitriptyline [Elavil] 25 mg PO BEDTIME 02/22/17 02/22/17 History Gabapentin 300 mg PO BID 02/22/17 02/22/17 History Morphine Sulfate [Morphine Sulfate 60 mg PO BID 02/22/17 02/22/17 History ER] Review of System - Review of System 12 point system: reviewed and no additional remarkable complaints except as stated - Review of System Constitutional: Present: fever Respiratory: Absent: cough, respiratory distress Gastrointestinal: Absent: abdominal pain, nausea, vomiting, diarrhea Genitourinary female: Present: dysuria, other ("dark urine") Skin: Absent: rash Medical,Surgical,& Family Hx - Medical History Cardio: History of: Cardiac Dysrhythmia (TACHYCARDIAC) Psychological: History of: Anxiety Disorders Neurology: History of: Peripheral Neuropathy Rheumatology: History of;: Fibromyalgia Respiratory: History of: Asthma, COPD Genitourinary: History of: Bladder Problem, Kidney Stones Gastrointestinal: History of: GERD Musculoskeletal: History of: Back/Neck Problems, Degenerative Disk Disease, Osteoporosis Hematology: No history of: Blood Transfusion Reaction Reproductive: No history of: Breast Cancer Other: History of: Anesthesia Reactions No history of: Cancer - Surgical History Cardiac Surgeries: Sugical HX of: Cardiac Catheterization Thoracic Surgeries: Patient denies;: Kidney (Renal Surgery), Lithotripsy HEENT Surgeries: Surgical HX of: Eye Surgery, Tonsilectomy & Adenoidectomy Abdominal Surgeries: Surgical HX of: Appendectomy, Cholecystectomy, Colonoscopy , EGD, Hernia Repair (GROIN) Reproductive Surgeries: Surgical HX of;: Breast Surgery (RIGHT TUMOR), Section (X 2), Hysterectomy Orthopedic Surgeries: Surgical HX of;: Spinal Surgery Patient denies;: Orthopedic Surgery, Total Hip Replacement, Total Knee Replacement - Social History Smoking Status: Smoker, status unknown Frequency of Alcohol Use: None Type of Drug Use: None Exam Vital Signs: Vital Signs Temperature 99.8 F H 02/22/17 15:15 Pulse Rate 99 H 02/22/17 18:00 Respiratory Rate 20 02/22/17 18:00 Blood Pressure 129/81 02/22/17 18:00 O2 Sat by Pulse Oximetry 96 02/22/17 18:00 - General General appearance: alert, in no apparent distress - Head Head exam: Present: atraumatic, normocephalic - Eye Eye exam: Present: normal appearance, PERRL, EOMI - ENT ENT exam: Present: normal exam - Neck Neck exam: Present: normal inspection - Chest Chest inspection: Present: normal inspection, symmetric chest wall rise - Respiratory Respiratory exam: Present: normal lung sounds bilaterally - Cardiovascular Cardiovascular exam: Present: regular rate, normal rhythm, normal heart sounds - Abdominal Exam Abdominal exam: Present: soft. Absent: distention, tenderness - Extremities Exam Extremities exam: Present: normal inspection - Back Exam Back exam: Present: normal inspection - Neurological Exam Neurological exam: Present: alert, oriented X3 - Psychiatric Psychiatric exam: Present: normal affect, normal mood - Skin Skin exam: Present: warm, dry, intact, normal color Course Course Narrative: Medical decision making: Discussed with hospitalist service for probable admission overnight for further evaluation of her various symptoms especially the weakness and confusion that is progressing over the last couple months. Furthermore the x-ray is questionable with possible pneumonia versus masslike finding. Results - Labs CBC & BMP: 02/22/17 16:24 02/22/17 16:24 Lab Results: I have reviewed the patients labs Labs: Laboratory Tests 02/22/17 02/22/17 02/22/17 16:24 16:24 16:24 RBC 3.69 L Hgb 10.5 L Hct 31.3 L MCV 84.8 L Neut % (Auto) 76.5 H Lymph % (Auto) 14.2 L Neut # (Auto) 8.9 H Norton # (Auto) 0.9 H Lymphocytes 10 L BUN 23 H Creatinine 1.10 H Calcium 8.4 L Magnesium 1.7 L Direct Bilirubin Alkaline Phosphatase Total Protein Albumin Urine Urobilinogen 4.0 H Urine Leukocytes Moderate H 02/22/17 16:24 RBC Hgb Hct MCV Neut % (Auto) Lymph % (Auto) Neut # (Auto) [place] # (Auto) Lymphocytes BUN Creatinine Calcium Magnesium Direct Bilirubin 0.40 H Alkaline Phosphatase 157 H Total Protein 5.9 L Albumin 2.8 L Urine Urobilinogen Urine Leukocytes - Diagnostic Findings Procedure: Chest x-ray: report reviewed by me (The cardiomediastinal silhouette is stable in configuration. Heart remains mildly prominent. Interval development of masslike opacification within the right suprahilar lung which measures up to 5 cm. This most likely reflects pneumonia given clinical history and significant change from prior exam. Follow-up imaging is recommended to document resolution and exclude underlying neoplasm. There is right mid and bilateral lower lung linear atelectasis/scarring. Visualized osseous and surrounding soft tissue structures appear grossly unchanged.) Disposition Clinical Impression: Confusion, Forgetfulness, Falls frequently, CAP (community acquired pneumonia) Case discussed with: patient, patient's family Disposition: Still a Patient Condition: Stable Time of Disposition: 18:23
[2017-02-22] MEDS ORDERED: ONDANSETRON 4 MG/2 ML VIAL IV PRN (20:47)
[2017-02-22] MEDS ORDERED: ACETAMINOPHEN 325 MG TABLET PO PRN (20:47)
[2017-02-22] MEDS ORDERED: BUDESONIDE 0.5 MG/2 ML NEB RESP TX PRN (20:47)
[2017-02-22] MEDS ORDERED: FLUTICASONE 110 MCG/PUFF INHALER 12 GM INH PRN (20:47)
[2017-02-22] MEDS ORDERED: MAGNESIUM SULF RIDER 2 GM in PREMIX 1 EACH IV STA (20:52)
[2017-02-22] MEDS: ALBUTEROL/IPRATROPIUM 3 ML NEB RESP TX SCH ×2 (21:00→23:00)
[2017-02-22] MEDS: ENOXAPARIN 40 MG/0.4 ML SYRINGE SUBCUT SCH (22:52)
[2017-02-22 23:05] LABS: Magnesium 1.4 MG/DL (1.8-2.4); Thyroid Stimulating Hormone 3.31 uIU/ml (0.358-3.74)
[2017-02-23] MEDS: DEXTROSE 5% NACL 0.9% 1,000 ML IV SCH ×2 (00:03→12:34)
[2017-02-23] MEDS: ALBUTEROL/IPRATROPIUM 3 ML NEB RESP TX SCH ×4 (03:00→14:30)
--- NOTE | 2017-02-23 05:57 | CT Report ---
Referring physician: Leoncio Cano EXAM: CT chest with contrast DATE: February 22, 2017 COMPARISON: CTA chest June 25, 2010 REASON: Right hilar lung mass Preliminary report was provided by [facility]. TECHNIQUE: Axial images of the chest were obtained after administration of 80 cc of Omnipaque 350 IV contrast. Coronal and sagittal reformatted images were also provided. Total DLP is 264.5 mGy*cm. FINDINGS: Vasculature/Heart: The thoracic aorta is normal in size, and the pulmonary arteries are unremarkable. The heart appears normal in size, and no pericardial effusion is seen. Lymph nodes: There are a few prominent mediastinal lymph nodes. A right paratracheal lymph node on image 36 measures 1.2 cm in short axis diameter (previously measured 0.7 cm). There are also upper normal size right hilar lymph nodes. A right hilar lymph node on image 54 measures 0.7 cm in short axis diameter. No left hilar or axillary adenopathy is seen. Other mediastinum: Otherwise unremarkable. Lungs: Confluent opacities with air bronchograms are seen within the posterior and apical portions of the right upper lobe and within the anterior aspect of the right lower lobe. This is concerning for pneumonia. Additional scattered bandlike opacities are seen within the right middle lobe, right lower lobe, lingula and left lower lobe. This is most consistent with atelectasis and possibly scarring. No pneumothorax is identified, but there is mild right pleural fluid. Bones: There has been surgical fusion of the cervical spine, and there is kyphoplasty/vertebroplasty change at L1. Mild anterior wedging is seen at the T8 vertebral body, but this is likely chronic. No acute osseous process is seen. Chest wall: Unremarkable. Upper abdomen: The patient is status post cholecystectomy. The common bile duct is prominent but stable, likely secondary to the cholecystectomy status. Correlation with liver function studies would be helpful. IMPRESSION: 1. There are confluent opacities with air bronchograms within the right upper lobe and right lower lobe. This is concerning for pneumonia. Follow-up is recommended to confirm resolution and exclude an underlying pulmonary nodule. 2. There are scattered bandlike opacities within both lungs. This likely represents atelectasis and possibly scarring. 3. Mild right pleural fluid. 4. Mildly enlarged mediastinal lymph nodes, increased in size since the previous study. They may be reactive, but follow-up is recommended to confirm a benign process. The CT exam was performed using one or more of the following dose reduction techniques: Automated exposure control and adjustment of the mA and/or kV according to patient size. PROCEDURE INTERPRETED AT [facility] DEPARTMENT OF RADIOLOGY Final Report Signed by: Dr. John Coe
[2017-02-23 06:28] LABS: Basophils % 0.2 % (0.0-0.8); Eosinophils # 0.1 10*3/uL (0.0-0.87); Eosinophils % 1.2 % (0.00-10.9); Hematocrit 28.4 VOL% (35.7-47.0); Hemoglobin 9.6 GM/DL (12.0-16.0); Immature Granulocytes % 0.6 %; Immature Granulocytes Absolute 0.05 #; Lymphocytes # 2.1 10*3/uL (1.4-4.0); Lymphocytes % 24.9 % (21.3-54.2); Mean Corpuscular HGB Conc 33.8 GM/DL (32-36); Mean Corpuscular Hemoglobin 29 PG (27-34); Mean Corpuscular Volume 84.5 FL (87-102); Mean Platelet Volume 10.7 FL (9.6-12.0); Monocytes # 0.8 10*3/uL (0.11-0.8); Monocytes % 9.3 % (1.7-12.7); Neutrophils # 5.5 10*3/uL (1.4-7.4); Neutrophils % 63.8 % (38.7-73.9); Platelet Count 141 T/CUMM (130-400); Red Blood Count 3.36 MC/CUMM (3.8-5.5); White Blood Count 8.5 T/CUMM (4-12)
[2017-02-23 06:55] LABS: Calcium 7.7 MG/DL (8.5-10.1); Osmolality,Calculated 278.4 MOS/KG (273-304)
[2017-02-23 06:57] LABS: Band Neutrophils 4 % (0-10); Eosinophils 1 % (0-10); Hypochromasia 1+; Lymphocytes 21 % (20-55); Platelet Estimate Adequate; Segmented Neutrophils 69 % (50-85); Total Cells Counted 100
--- NOTE | 2017-02-23 07:15 | Physician Query Form ---
CLICK EDIT DOCUMENT TO SELECT QUERY ANSWER --> OK --> SIGN Mela Bradley RN, CCDS Certified Clinical [place] W) [phone] (f) [phone] [email or web address] PROVIDERS: Make your selection(s) from the choices in EACH section by typing an "x" and enter comments in the comment section. Please use your independent medical judgment in providing your response. This request does not imply that any particular answer is desired or expected. CLINICAL INDICATORS: (Providers should not edit this section) The below diagnosis was documented in the record, but is not consistently noted in subsequent documentation. The medical record indicates that the patient was admitted with pneumonia, Septic Shock, Sepsis, Normal WBC, Normal Lactic Acid (0.7), Highest Temp of 99.8 , Tachycardia and BP of 104/62. As the attending MD can you please clarify if the Sepsis is ? Diagnosis: Sepsis if confirmed please indicate supporting indicators. Please clarify the following: ( ) The above diagnosis was monitored, evaluated, and/or treated and is a confirmed diagnosis ( ) Please include clinical indicators ( ) The above diagnosis was ruled out ( ) The above diagnosis is still a likely, suspected, probable diagnosis ( ) Please include clinical indicators (x) Other, please specify:already have the information ( ) Clinically unable to determine COMMENTS: PLEASE ALSO DOCUMENT RESPONSE IN PROGRESS NOTES AND/OR DISCHARGE SUMMARY Use of terms such as suspected, likely, or probable (associated with a specific diagnosis that is being evaluated, monitored, or treated as if it exists) are acceptable and can be restated in the discharge summary if not ruled out. MTDD
[2017-02-23] MEDS: PANTOPRAZOLE 40 MG TABLET PO SCH (09:39)
[2017-02-23] MEDS: FLUTICASONE 50 MCG NASAL SPRAY 16 GM BOTTLE BOTH NARES SCH (09:40)
[2017-02-23] MEDS ORDERED: NITROGLYCERIN SL 0.4 MG TABLET SL PRN (13:59)
[2017-02-23] MEDS ORDERED: HydrOXYzine PAMOATE 25 MG CAPSULE PO PRN (13:59)
--- NOTE | 2017-02-23 14:10 | Hospitalist Progress Note ---
Assessment and Plan (1) Healthcare-associated pneumonia Status: Acute Assessment and plan: This patient was recently discharged from the hospital go to consider this right upper lobe pneumonia to be healthcare associated pneumonia. It was noted on the chest x-ray done this on recent admission. We will try to obtain sputum for Gram stain and culture. Antibiotic coverage to include vancomycin 1 g IV every 12 and cefepime 1 g IV q. 12. Discontinue azithromycin discontinue ceftriaxone Current Visit: Yes (2) Fibromyalgia Status: Acute Assessment and plan: Patient is on multiple analgesias. Those will be continued here because she is already asking for them. That includes long-acting morphine to 30 mg twice a day hydrocodone 07/27 taking 1 every 12 hours as needed she is on gabapentin 300 mg twice daily. She is also on other psychotropic medication was suggested she does have history of depression putting SSRIs. Those will be continued. Current Visit: Yes Hospitalist: Subjective Interval history: Patient has been seen interviewed and examined and chart has been reviewed. Patient presented to the hospital with history of fevers and a newly developed pneumonia in the right upper lobe. He has got atelectatic lung in both lower lobes. She was in the hospital recently therefore this should be considered healthcare associated pneumonia. I will therefore broaden antibiotic coverage to include vancomycin and cefepime discontinue azithromycin discontinue ceftriaxone. I will attempt to get sputum Gram stain and culture Interestingly this patient tells me that she has had frequent pneumonias in the past. Of late this has not been a problem. If she frequents the hospital with pneumonia this patient should be evaluated for hypogammaglobulinemia. Exam - Constitutional Vitals: Period Temp Pulse Resp BP Sys/Mike Pulse Ox Last 24 Hr 97.2 F-98.2 F 92-115 17-20 101-129/51-81 92-98 General appearance: over weight - Head Head exam: Present: normocephalic - Eye Eye exam: Present: EOMI Pupils: Present: BASSAM - ENT ENT exam: Present: normal exam - Neck Neck exam: Present: normal inspection, other (Supple neck no adenopathy no thyromegaly) - Respiratory Respiratory exam: Present: clear to auscultation bilaterally, other (No on amphophory) - Cardiovascular Cardiovascular exam: Present: regular rate and rhythm - GI/Abdominal GI/Abdominal exam: Present: normal bowel sounds, soft - Extremities Exam Extremities exam: Present: full ROM - Neurological Exam Neurological exam: Present: alert, oriented X3, CN II-XII intact - Psychiatric Psychiatric exam: Present: normal affect, normal mood - Skin Skin exam: Present: normal color, warm, dry Results - Labs CBC & BMP: 02/23/17 05:14 02/23/17 05:14 Lab Results: I have reviewed the past 24 hour labs
[2017-02-23] MEDS ORDERED: CEFEPIME 1,000 MG VIAL IM SCH (14:30)
[2017-02-23] MEDS: CEFEPIME 1,000 MG in SODIUM CHLORIDE 0.9% 100 ML IV SCH (16:43)
[2017-02-23] MEDS ORDERED: cefTRIAXone 1,000 MG in SODIUM CHLORIDE 0.9% 100 ML IV SCH (17:00)
[2017-02-23] MEDS: VANCOMYCIN INJ 1,250 MG in SODIUM CHLORIDE 0.9% 250 ML IV SCH (17:58)
[2017-02-23] MEDS ORDERED: AZITHROMYCIN INJ 500 MG in SODIUM CHLORIDE 0.9% 250 ML IV SCH (21:00)
[2017-02-23] MEDS ORDERED: NON-FORMULARY MEDICATION (Morphine Sulfate [Morphine Sulfate Er] 60 MG) PO SCH (21:00)
[2017-02-23] MEDS: ENOXAPARIN 40 MG/0.4 ML SYRINGE SUBCUT SCH (22:32)
[2017-02-23] MEDS: MORPHINE ER 30 MG TABLET PO SCH (22:33)
[2017-02-23] MEDS: CLORAZEPATE 7.5 MG TABLET PO SCH (22:33)
[2017-02-23] MEDS: AMITRIPTYLINE 25 MG TABLET PO SCH ×2 (22:33→22:45)
[2017-02-23] MEDS: GABAPENTIN 300 MG CAPSULE PO SCH (22:33)
[2017-02-23] MEDS: METOPROLOL TARTRATE 50 MG TABLET PO SCH (22:33)
[2017-02-23] MEDS ORDERED: AMITRIPTYLINE 100 MG TABLET PO SCH (23:00)
[2017-02-23] MEDS: AMITRIPTYLINE 50 MG TABLET PO SCH (23:15)
[2017-02-24] MEDS: DEXTROSE 5% NACL 0.9% 1,000 ML IV SCH ×3 (00:39→18:26)
[2017-02-24 06:35] LABS: Calcium 7.9 MG/DL (8.5-10.1); Osmolality,Calculated 280.1 MOS/KG (273-304); Potassium 4.2 MMOL/L (3.5-5.1)
[2017-02-24 06:47] LABS: Basophils % 0.1 % (0.0-0.8); Eosinophils # 0.3 10*3/uL (0.0-0.87); Eosinophils % 4.6 % (0.00-10.9); Hematocrit 27.6 VOL% (35.7-47.0); Hemoglobin 9.2 GM/DL (12.0-16.0); Immature Granulocytes % 0.9 %; Immature Granulocytes Absolute 0.06 #; Lymphocytes # 1.9 10*3/uL (1.4-4.0); Lymphocytes % 28.1 % (21.3-54.2); Mean Corpuscular HGB Conc 33.3 GM/DL (32-36); Mean Corpuscular Hemoglobin 28 PG (27-34); Mean Corpuscular Volume 84.4 FL (87-102); Mean Platelet Volume 10.2 FL (9.6-12.0); Monocytes # 0.7 10*3/uL (0.11-0.8); Monocytes % 10.7 % (1.7-12.7); Neutrophils # 3.8 10*3/uL (1.4-7.4); Neutrophils % 55.6 % (38.7-73.9); Platelet Count 166 T/CUMM (130-400); Red Blood Count 3.27 MC/CUMM (3.8-5.5); Red Cell Distribution Width 13.9 % (9.3-17.3); White Blood Count 6.8 T/CUMM (4-12)
[2017-02-24] MEDS ORDERED: NON-FORMULARY MEDICATION (Omeprazole [Prilosec] 40 MG) PO SCH (09:00)
[2017-02-24] MEDS: CEFEPIME 1,000 MG in SODIUM CHLORIDE 0.9% 100 ML IV SCH ×2 (09:27→16:50)
[2017-02-24] MEDS: VANCOMYCIN INJ 1,250 MG in SODIUM CHLORIDE 0.9% 250 ML IV SCH ×2 (09:28→17:47)
[2017-02-24] MEDS: MORPHINE ER 30 MG TABLET PO SCH ×2 (09:38→22:24)
[2017-02-24] MEDS: CLORAZEPATE 7.5 MG TABLET PO SCH ×2 (09:38→22:22)
[2017-02-24] MEDS: PANTOPRAZOLE 40 MG TABLET PO SCH (09:39)
[2017-02-24] MEDS: GABAPENTIN 300 MG CAPSULE PO SCH ×2 (09:39→22:22)
[2017-02-24] MEDS: METOPROLOL TARTRATE 50 MG TABLET PO SCH ×2 (09:39→22:22)
[2017-02-24] MEDS: FLUTICASONE 50 MCG NASAL SPRAY 16 GM BOTTLE BOTH NARES SCH (09:40)
--- NOTE | 2017-02-24 11:34 | Physician Query Form ---
CLICK EDIT DOCUMENT TO SELECT QUERY ANSWER --> OK --> SIGN Mela Bradley RN, CCDS Certified Clinical [employer] [place] W) [phone] (f) [phone] [email or web address] PROVIDERS: Make your selection(s) from the choices in EACH section by typing an "x" and enter comments in the comment section. Please use your independent medical judgment in providing your response. This request does not imply that any particular answer is desired or expected. CLINICAL INDICATORS: (Providers should not edit this section) The medical record indicates that the patient was admitted with pneumonia, AMS , "confusion that is progressing over the last couple months", "alert, oriented X3" (Per ER note) and the patient had a CT done in the ER. ACUITY: ( ) Acute ( ) Acute on Chronic ( ) Chronic (x ) Clinically unable to determine NATURE: ( ) Delirium due to general medical condition ( ) Dementia ( ) Encephalopathy ( ) Infectious Encephalopathy ( ) Unconscious ( ) Transient level of awareness ( ) Comatose ( ) Locked-in State ( ) Persistent Vegetative State ( x) Other, please specify: I defer to admitting provider. ( ) Clinically unable to determine Please indicate the underlying cause of the altered mental status (CHECK ALL THAT APPLY): ( ) Baseline dementia ( ) Alzheimer's disease ( ) Parkinson's disease ( ) Lewy body dementia ( ) Acute stroke ( ) Late effect of stroke ( ) Reactive (from emotional stress, psychological trauma) ( ) Due to narcotics/other drugs ( ) Post procedural delirium ( ) Transient ischemic attack ( ) Generalized cerebral edema ( ) Normal pressure hydrocephalus ( ) Psychiatric illness ( x) Other, please specify: I defer to admitting provider ( ) Clinically unable to determine Please indicate if there is an infection, sepsis, dehydration or specific organ failure that is causing the dementia. Be specific with clarifying the relationship between that process and the mental status change. COMMENTS: PLEASE ALSO DOCUMENT RESPONSE IN PROGRESS NOTES AND/OR DISCHARGE SUMMARY Use of terms such as suspected, likely, or probable (associated with a specific diagnosis that is being evaluated, monitored, or treated as if it exists) are acceptable and can be restated in the discharge summary if not ruled out. MTDD
--- NOTE | 2017-02-24 14:18 | Hospitalist Progress Note ---
Assessment and Plan (1) Healthcare-associated pneumonia Status: Acute Assessment and plan: This patient was recently discharged from the hospital go to consider this right upper lobe pneumonia to be healthcare associated pneumonia. It was noted on the chest x-ray done this on recent admission. We will try to obtain sputum for Gram stain and culture. Antibiotic coverage to include vancomycin 1 g IV every 12 and cefepime 1 g IV q. 12. Discontinue azithromycin discontinue ceftriaxone Current Visit: Yes (2) Fibromyalgia Status: Acute Assessment and plan: Patient is on multiple analgesias. Those will be continued here because she is already asking for them. That includes long-acting morphine to 30 mg twice a day hydrocodone 07/27 taking 1 every 12 hours as needed she is on gabapentin 300 mg twice daily. She is also on other psychotropic medication was suggested she does have history of depression putting SSRIs. Those will be continued. Current Visit: Yes Hospitalist: Subjective Interval history: Patient has been patient has been seen interviewed and examined chart has been reviewed. No acute complaints today. Admitted to the hospital with healthcare associated right upper lobe pneumonia she is responding to antibiotics. Exam - Constitutional Vitals: Period Temp Pulse Resp BP Sys/Mike Pulse Ox Last 24 Hr 97.0 F-99.0 F 77-122 18-20 103-148/62-85 90-98 General appearance: normal weight - Head Head exam: Present: normocephalic, atraumatic - Eye Eye exam: Present: EOMI Pupils: Present: BASSAM - ENT ENT exam: Present: normal exam - Neck Neck exam: Present: normal inspection - Respiratory Respiratory exam: Present: clear to auscultation bilaterally - Cardiovascular Cardiovascular exam: Present: regular rate and rhythm - GI/Abdominal GI/Abdominal exam: Present: normal bowel sounds - Extremities Exam Extremities exam: Present: normal inspection, full ROM - Back Exam Back exam: Present: normal inspection - Neurological Exam Neurological exam: Present: alert, oriented X3, CN II-XII intact - Psychiatric Psychiatric exam: Present: normal affect, normal mood - Skin Skin exam: Present: normal color, warm, dry Results - Labs CBC & BMP: 02/24/17 04:00 02/24/17 04:00 Lab Results: I have reviewed the past 24 hour labs - Diagnostic Findings Procedure: Chest x-ray: image reviewed by me (Right upper lobe pneumonia. Will repeat a chest x-ray in 2 days.)
[2017-02-24] MEDS: ENOXAPARIN 40 MG/0.4 ML SYRINGE SUBCUT SCH (22:23)
[2017-02-24] MEDS: AMITRIPTYLINE 50 MG TABLET PO SCH (22:24)
[2017-02-25] MEDS: CEFEPIME 1,000 MG in SODIUM CHLORIDE 0.9% 100 ML IV SCH (02:35)
[2017-02-25] MEDS: DEXTROSE 5% NACL 0.9% 1,000 ML IV SCH ×3 (02:40→20:11)
[2017-02-25 03:50] LABS: Hematocrit 27.1 VOL% (35.7-47.0); Hemoglobin 8.9 GM/DL (12.0-16.0); Mean Corpuscular HGB Conc 32.8 GM/DL (32-36); Mean Corpuscular Hemoglobin 28 PG (27-34); Mean Corpuscular Volume 85.5 FL (87-102); Red Blood Count 3.17 MC/CUMM (3.8-5.5); Red Cell Distribution Width 13.7 % (9.3-17.3); White Blood Count 5.8 T/CUMM (4-12)
[2017-02-25 03:51] LABS: Basophils % 0.5 % (0.0-0.8); Eosinophils # 0.4 10*3/uL (0.0-0.87); Eosinophils % 6.2 % (0.00-10.9); Immature Granulocytes % 0.5 %; Immature Granulocytes Absolute 0.03 #; Lymphocytes # 2.1 10*3/uL (1.4-4.0); Lymphocytes % 35.7 % (21.3-54.2); Mean Platelet Volume 10.5 FL (9.6-12.0); Monocytes # 0.6 10*3/uL (0.11-0.8); Monocytes % 10.5 % (1.7-12.7); Neutrophils # 2.7 10*3/uL (1.4-7.4); Neutrophils % 46.6 % (38.7-73.9); Platelet Count 156 T/CUMM (130-400)
[2017-02-25 04:20] LABS: Calcium 7.8 MG/DL (8.5-10.1); Osmolality,Calculated 276.4 MOS/KG (273-304); Potassium 4.4 MMOL/L (3.5-5.1)
[2017-02-25] MEDS: VANCOMYCIN INJ 1,250 MG in SODIUM CHLORIDE 0.9% 250 ML IV SCH (04:20)
[2017-02-25 04:22] LABS: Albumin 2.1 G/DL (3.4-5.0); Bilirubin,Total 0.7 MG/DL (0.2-1.0); Calcium 7.9 MG/DL (8.5-10.1); Osmolality,Calculated 276.4 MOS/KG (273-304); Potassium 4.3 MMOL/L (3.5-5.1); Total Protein 4.9 G/DL (6.4-8.3)
[2017-02-25] MEDS: PANTOPRAZOLE 40 MG TABLET PO SCH (09:05)
[2017-02-25] MEDS: METOPROLOL TARTRATE 50 MG TABLET PO SCH ×2 (09:05→20:13)
[2017-02-25] MEDS: GABAPENTIN 300 MG CAPSULE PO SCH ×2 (09:05→20:13)
[2017-02-25] MEDS: CLORAZEPATE 7.5 MG TABLET PO SCH ×2 (09:05→20:13)
[2017-02-25] MEDS: FLUTICASONE 50 MCG NASAL SPRAY 16 GM BOTTLE BOTH NARES SCH (10:51)
[2017-02-25] MEDS: MORPHINE ER 30 MG TABLET PO SCH ×2 (10:51→20:13)
[2017-02-25] MEDS: LEVOFLOXACIN 750 MG TABLET PO SCH (10:51)
--- NOTE | 2017-02-25 12:14 | Discharge Summary ---
Hospital Course - Hospital Course Hospital Course: Ms. Ybarra is a 66-year-old white female who was admitted on 02/22/2017 through the ED with sepsis and pneumonia. Chest x-ray on admission revealed confluent opacities with air bronchograms within the right upper lobe and right lower lobe concerning for pneumonia. There is also mild right pleural fluid. Patient received a normal saline bolus 2250 mL IV then was started on D5 normal saline at 125 mils per hour. Blood cultures were obtained with no growth at day 1. Urine culture revealed gram-positive cocci. Patient was treated with Rocephin and azithromycin. The remainder of hospital course was relatively uncomplicated. Patient has now reached maximum benefit from hospitalization and stable for discharge. She will be discharged home to self with appropriate follow-up instructions per Dr. Tyson. Patient is to follow-up outpatient with her PCP as well as with neurology for continued MS workup. - Time spent with patient Time with patient DS: Greater than 30 minutes Diagnosis - Discharge Diagnosis (1) Pneumonia Status: Acute (2) Septic shock Status: Acute (3) Urinary tract infection Status: Acute (4) Tachycardia Status: Acute Discharge Plan - Discharge Medications No Action Budesonide Neb [Pulmicort Respules] 0.5 mg RESP TX RT BID PRN PRN Reason: Shortness Of Breath/Wheezing HydrOXYzine PAMOATE CAP [Vistaril Cap] 25 mg PO Q4-6H PRN PRN Reason: Anxiety buPROPion HCl [Bupropion Xl] 300 mg PO DAILY Clorazepate Dipotassium 7.5 mg PO BID Omeprazole [Prilosec] 40 mg PO DAILY Cyanocobalamin Inj [Vitamin B12 Inj] 1,000 mcg IM FR Nitroglycerin Sl Tab [Nitrostat] 0.4 mg SL Q5M PRN PRN Reason: Chest Pain Fluticasone 50 Mcg Nasal [place] [Flonase Nasal [place]] 1 spray BOTH NARES DAILY Morphine Sulfate [Morphine Sulfate ER] 30 mg PO BID Gabapentin 300 mg PO BID Amitriptyline [Elavil] 2 tablet PO BEDTIME HYDROcodone/ACETAMIN 10-325 [[place] 10-325] 1 tablet PO BID PRN PRN Reason: Pain Metoprolol Tartrate 75 mg PO BID - Follow Up or Referral - Forms/Instructions Exam - Constitutional Vitals: Period Temp Pulse Resp BP Sys/Mike Pulse Ox Last 24 Hr 97.5 F-98.5 F 73-92 16-20 100-129/62-81 89-95 Discharge Results Procedures and tests throughout hospitalization: Pending Orders 02/22/17 Urine Culture Routine 02/22/17 20:47 Sputum Culture and Gram Stain Stat 02/22/17 22:22 Blood Culture Stat 02/26/17 04:00 Basic Metabolic Panel IN AM Labs on day of discharge: Labs from last 24 hours 02/25/17 02/25/17 02/25/17 03:10 03:10 03:10 WBC 5.8 RBC 3.17 L Hgb 8.9 L Hct 27.1 L MCV 85.5 L MCH 28 MCHC 32.8 RDW 13.7 Plt Count 156 MPV 10.5 Neut % (Auto) 46.6 Lymph % (Auto) 35.7 Parker % (Auto) 10.5 Eos % (Auto) 6.2 Baso % (Auto) 0.5 Neut # (Auto) 2.7 Lymph # (Auto) 2.1 [place] # (Auto) 0.6 Eos # (Auto) 0.4 Baso # (Auto) 0.0 Immature Gran % 0.5 Nucleated RBC % 0.0 Immature Gran # 0.03 Nucleated RBCs # 0.00 Sodium 140 140 Potassium 4.3 4.4 Chloride 108 H 109 H Carbon Dioxide 24 24 Anion Gap 12.3 11.4 BUN 10 10 Creatinine 0.90 0.80 GFR Calculation 71 82 BUN/Creatinine Ratio 11.00 12.00 Glucose 76 75 Calculated Osmolality 276.4 276.4 Calcium 7.9 L 7.8 L Total Bilirubin 0.70 AST 16 ALT 25 Alkaline Phosphatase 141 H Ammonia 27 Total Protein 4.9 L Albumin 2.1 L Globulin 2.8 Albumin/Globulin Ratio 0.7 L Preliminary micro results at discharge 02/22/17 Unknown Urine Culture - Preliminary Urine,Voided Gram Positive Cocci Microstrep plus panel 1 02/22/17 22:22 Blood Culture - Preliminary Blood No growth at 1 day 02/22/17 22:22 Blood Culture - Preliminary Blood No growth at 1 day DS: Provider Date of admission: 02/22/17 17:21 Primary care physician: . No PCP Attending physician on admission: Leoncio Cano MD Consults: 02/23/17 14:29 Consult to Pharmacy [CONS] Routine Reason for Pharmacy Consult: Dose/Manage Vancomycin Discharging clinician: Raleigh WASSERMAN Expected date of discharge: 02/25/17
[2017-02-25] MEDS: ENOXAPARIN 40 MG/0.4 ML SYRINGE SUBCUT SCH (20:13)
[2017-02-26] MEDS: DEXTROSE 5% NACL 0.9% 1,000 ML IV SCH ×2 (02:14→12:09)
[2017-02-26 06:52] LABS: Calcium 8.2 MG/DL (8.5-10.1); Osmolality,Calculated 276.4 MOS/KG (273-304); Potassium 4.3 MMOL/L (3.5-5.1)
[2017-02-26] MEDS: MORPHINE ER 30 MG TABLET PO SCH (08:26)
[2017-02-26] MEDS: PANTOPRAZOLE 40 MG TABLET PO SCH (08:26)
[2017-02-26] MEDS: GABAPENTIN 300 MG CAPSULE PO SCH (08:26)
[2017-02-26] MEDS: METOPROLOL TARTRATE 50 MG TABLET PO SCH (08:26)
[2017-02-26] MEDS: CLORAZEPATE 7.5 MG TABLET PO SCH (08:26)
[2017-02-26] MEDS: FLUTICASONE 50 MCG NASAL SPRAY 16 GM BOTTLE BOTH NARES SCH (08:29)
--- NOTE | 2017-02-26 10:46 | Event Note ---
Patient seen and examined. She continues to have minimal cough but is afebrile and tolerating p.o. medications. It appears that she was planned for discharge yesterday however no order was placed. She states that she has home O2 as well as home meds and can do everything that we are doing for her here. We will discharge her today with follow-up with Dr. Douglas Gonzales next week.
--- NOTE | 2017-02-26 10:52 | Discharge Summary ---
Hospital Course - Hospital Course Hospital Course: Ms. Ybarra is a 66-year-old white female who was admitted on 02/22/2017 through the ED with sepsis and pneumonia. Chest x-ray on admission revealed confluent opacities with air bronchograms within the right upper lobe and right lower lobe concerning for pneumonia. There is also mild right pleural fluid. Patient received a normal saline bolus 2250 mL IV then was started on D5 normal saline at 125 mils per hour. Blood cultures were obtained with no growth at day 1. Urine culture revealed gram-positive cocci. Patient was treated with Rocephin and azithromycin. The remainder of hospital course was relatively uncomplicated. Patient has now reached maximum benefit from hospitalization and stable for discharge. She will be discharged home to self with appropriate follow-up instructions per Dr. Tyson. Patient is to follow-up outpatient with her PCP as well as with neurology for continued MS workup. - Time spent with patient Time with patient DS: Less than 30 minutes Discharge Plan - Discharge Data Disposition: Disch To Home/Self Care Condition at Discharge: Stable Discharge Diet: advance to your usual diet Activity: resume usual activities as tolerated Contact your physician if you experience:: fever over 101, Shortness of breath - Discharge Medications New Budesonide Neb [Pulmicort Respules] 0.5 mg RESP TX RT BID PRN PRN Reason: Shortness Of Breath/Wheezing buPROPion XL [Wellbutrin Xl] 300 mg PO DAILY tablet Clorazepate [Tranxene] 7.5 mg PO BID tablet Gabapentin Cap/Tab [Neurontin Cap/Tab] 300 mg PO BID capsule Levofloxacin Tab [Levaquin Tab] 750 mg PO Q24H #7 tablet Fluticasone 110 Mcg Inhaler [Flovent 110 mcg Inhaler] 110 mcg INH BID PRN inhaler PRN Reason: Shortness Of Breath Nitroglycerin Sl Tab [Nitrostat] 0.4 mg SL Q5M PRN tablet PRN Reason: Chest Pain Continue HydrOXYzine PAMOATE CAP [Vistaril Cap] 25 mg PO Q4-6H PRN PRN Reason: Anxiety Cyanocobalamin Inj [Vitamin B12 Inj] 1,000 mcg IM FR Fluticasone 50 Mcg Nasal Joes [Flonase Nasal Joes] 1 spray BOTH NARES DAILY Morphine Sulfate [Morphine Sulfate ER] 30 mg PO BID Amitriptyline [Elavil] 2 tablet PO BEDTIME HYDROcodone/ACETAMIN 10-325 [[place] 10-325] 1 tablet PO BID PRN PRN Reason: Pain Metoprolol Tartrate 75 mg PO BID Discontinued Budesonide Neb [Pulmicort Respules] 0.5 mg RESP TX RT BID PRN PRN Reason: Shortness Of Breath/Wheezing buPROPion HCl [Bupropion Xl] 300 mg PO DAILY Clorazepate Dipotassium 7.5 mg PO BID Nitroglycerin Sl Tab [Nitrostat] 0.4 mg SL Q5M PRN PRN Reason: Chest Pain Gabapentin 300 mg PO BID No Action Omeprazole [Prilosec] 40 mg PO DAILY - Follow Up or Referral Follow Up: Douglas Gonzales MD [Physician] - 5 Days - Forms/Instructions Exam - Constitutional Vitals: Period Temp Pulse Resp BP Sys/Mike Pulse Ox Last 24 Hr 97.1 F-99.6 F 78-102 16-20 90-133/56-76 91-97 General appearance: no acute distress - Head Head exam: Present: normocephalic, atraumatic - Eye Eye exam: Present: EOMI Pupils: Present: BASSAM - ENT ENT exam: Present: normal exam - Neck Neck exam: Present: normal inspection - Respiratory Respiratory exam: Present: clear to auscultation bilaterally - Cardiovascular Cardiovascular exam: Present: regular rate and rhythm - GI/Abdominal GI/Abdominal exam: Present: normal bowel sounds, soft. Absent: tenderness - Extremities Exam Extremities exam: Absent: calf tenderness, edema - Back Exam Back exam: Present: normal inspection - Neurological Exam Neurological exam: Present: alert, oriented X3, CN II-XII intact. Absent: motor sensory deficit - Psychiatric Psychiatric exam: Present: normal affect, normal mood. Absent: agitated, anxious - Skin Skin exam: Present: warm, dry. Absent: erythema Discharge Results Procedures and tests throughout hospitalization: Pending Orders 02/22/17 20:47 Sputum Culture and Gram Stain Stat 02/22/17 22:22 Blood Culture Stat Labs on day of discharge: Labs from last 24 hours 02/26/17 05:01 Sodium 140 Potassium 4.3 Chloride 107 Carbon Dioxide 22 Anion Gap 15.3 H BUN 7 Creatinine 0.80 GFR Calculation 82 BUN/Creatinine Ratio 8.00 Glucose 97 Calculated Osmolality 276.4 Calcium 8.2 L Preliminary micro results at discharge 02/22/17 22:22 Blood Culture - Preliminary Blood No growth at 3 days 02/22/17 22:22 Blood Culture - Preliminary Blood No growth at 3 days DS: Provider Date of admission: 02/22/17 17:21 Primary care physician: . No PCP Attending physician on admission: Leoncio Cano MD Consults: 02/23/17 14:29 Consult to Pharmacy [CONS] Routine Reason for Pharmacy Consult: Dose/Manage Vancomycin Discharging clinician: Josefina Yang Expected date of discharge: 02/26/17
[2017-02-26 11:36] VITALS: BP 98/63
[2017-02-26] MEDS: LEVOFLOXACIN 750 MG TABLET PO SCH (12:09)
--- NOTE | 2017-03-09 10:26 | Physician Query Form ---
CLICK EDIT DOCUMENT TO SELECT QUERY ANSWER --> OK --> SIGN Naty Truong RN, CCDS Certified Clinical Machining Engineer W) [phone] (f) [phone] [email or web address] PROVIDERS: Make your selection(s) from the choices in EACH section by typing an "x" and enter comments in the comment section. Please use your independent medical judgment in providing your response. This request does not imply that any particular answer is desired or expected. CLINICAL INDICATORS: (Providers should not edit this section) Patient admitted with pneumonia and AMS with both sepsis and severe sepsis with septic shock documented. The patient has no documented organ failure, wbc was 11.7 - 5.8, platelets normal, lactic acid 0.7 - 0.8, temp max 99.8, pt had tachycardia up to 122, respirations normal, SBP range from 90 - 148 Please clarify the following: ( ) Severe sepsis with septic shock was monitored, evaluated, and/or treated and is a confirmed diagnosis If severe sepsis with septic shock is confirmed, please provide clinical indicators to support the diagnosis: ( X) Severe sepsis with septic shock was ruled out ( ) Other, please specify: ( ) Clinically unable to determine COMMENTS: PLEASE ALSO DOCUMENT RESPONSE IN PROGRESS NOTES AND/OR DISCHARGE SUMMARY Use of terms such as suspected, likely, or probable (associated with a specific diagnosis that is being evaluated, monitored, or treated as if it exists) are acceptable and can be restated in the discharge summary if not ruled out. MTDD
== END 2017-02-26 12:30 | disposition home or self-care (01) | DRG 871 ==
LOC: N.ED 15:06 → SUATTDRO 17:21 → N.5E 18:48
PROVIDERS: ADMIT Internal Medicine; ATTEND Hospitalist